=== PATIENT | female | born 1945 | race Caucasian/White ===

== ENCOUNTER 2021-02-20 09:37 | Inpatient (IN) | payer MEDICARE, MEDICAID, SELFPAY ==
[2021-02-20] VITALS (30 sets, daily range): BP systolic 62–216; BP diastolic 18–171; PULSE 45–84; RESP 13–19; TEMP 36–37.4; O2SAT 89–100; BMI 21.5; BMI 20.9
--- NOTE | ~2021-02-20 | XR_ITS ---
EXAMINATION: XR CHEST CLINICAL INFORMATION: Hypoxia COMPARISON: 08/14/2017 TECHNIQUE: Frontal view of the chest was obtained. FINDINGS: Mildly displaced fracture of the left seventh rib posteriorly suspected. This appears likely nonacute. No pneumothorax. Patient's chin obscures the left lung apex. No significant abnormality is otherwise noted involving the heart, lungs, mediastinum, bony thorax or soft tissues. XR/XR chest 1V IMPRESSION: Left-sided rib fracture as above. No infiltrate. No CHF.
--- NOTE | ~2021-02-20 | CT_ITS ---
EXAMINATION: CT ABDOMEN AND PELVIS WITHOUT CONTRAST CLINICAL INFORMATION: Acute and chronic kidney disease. Urosepsis. COMPARISON: Previous CT of the abdomen and pelvis July 2014 TECHNIQUE: Multidetector volumetric imaging was performed from the superior aspect of the liver through the pubic symphysis. Sagittal and coronal reformatted images were obtained on the technologist's workstation. This CT examination was performed using dose optimization techniques as appropriate, variously including the following: *Automated exposure control *Adjustment of mA and/or kV according to patient size (this includes techniques or standardized protocols for targeted exams where dose is matched to indication/reason for exam; i.e. extremities or head) *Use of iterative reconstruction technique DLP: 652 mGy-cm FINDINGS: LUNG BASES: There is minimal pleural thickening at the left lung base. LIVER, GALLBLADDER, AND BILIARY TREE: The liver is normal in size, shape, and attenuation. No focal hepatic lesion or biliary ductal dilatation is present. The gallbladder is unremarkable with no evidence of radiopaque gallstones, gallbladder wall thickening, or obvious pericholecystic inflammatory changes. PANCREAS: Unremarkable. SPLEEN: Unremarkable. ADRENAL GLANDS: Unremarkable. KIDNEYS AND URETERS: The kidneys are normal in size, shape, and attenuation. No hydronephrosis, hydroureter, or calculi seen. No perinephric stranding. There are bilateral renal cysts measuring 2.2 cm in the lower pole of the right kidney and 2.5 cm in the upper pole of the left kidney. These are similar to previous exam. No imaging follow-up needed. There are multiple small cortical millimeter in size calcifications seen in the kidneys, left greater than right. Cyst wall calcification and microcystic kidney disease should be considered. BLADDER: There is a Bedoya catheter in the bladder. The bladder is otherwise unremarkable. GASTROINTESTINAL TRACT: There is stool throughout the colon suggestive of constipation. There is diverticulosis of the colon. Small and large bowel is otherwise unremarkable. The appendix is unremarkable. There is an esophageal hernia. ABDOMINAL WALL: No significant hernia is appreciated. LYMPH NODES: Normal. VASCULAR: There is evidence of atherosclerotic disease. There is a 1.2 cm splenic artery aneurysm. This is similar in size to 2015 exam. PELVIC VISCERA: Unremarkable. OSSEOUS STRUCTURES: There is scoliosis and degenerative changes of the spine. CT/CT abdomen pelvis wo con IMPRESSION: No renal stone or hydronephrosis. Bilateral renal cysts. Numerous punctate cortical calcifications in both kidneys, left greater than right, question related to microcystic kidney disease. Diverticulosis and constipation. Stable small splenic artery aneurysm. Fleischner guidelines were followed.
--- NOTE | 2021-02-20 09:54 | ED_ITS ---
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 She was reportedly getting intermittently straight cathed and had a lot of pain with catheterization yesterday. Labs were done which revealed a WBC 17, sodium of 159, creatinine of 3.07 and BUN of 113. Her baseline BUN and creatinine are reportedly 45/1.93. Her last sodium was 137. Her urinalysis showed signs of infection but is unclear if she was start any antibiotics. She is chronically confused and contracted not a reliable historian. She is more lethargic than her baseline per EMS but unclear when this started. MD complaint: abnormal lab Initial visit (ago): day(s) Returns today for: called because of abnormal lab/test and needs IV antibiotics Description of abnormal result: sodium 159, SCR 3, WBC 17K Associated symptoms: other (lethargy) Related Data Allergies Allergy/AdvReac Type Severity Reaction Status Date / Time pollen extracts [POLLEN] Allergy Unknown SNEEZING Unverified 11/17/19 15:21 quetiapine [From SEROQUEL] Allergy Unknown UKNOWN Unverified 11/17/19 15:21 Review of Systems Review of Systems: Yes Unobtainable due to mental condition and Unobtainable due to mental status [facility] Past Medical History Attestation statement: The following information was validated with the patient. Social History Social History Advance Directives: Yes Advance Directives on File: Yes Advance Directives Date on File: 02/20/21 Physical Exam Vital Signs: Vital Signs: Last Vital Signs Temp 98.1 F 02/20/21 14:29 Pulse 72 02/20/21 14:33 Resp 15 02/20/21 14:29 BP 118/42 L 02/20/21 14:33 Pulse Ox 100 02/20/21 14:29 BMI result Body Mass Index 20.9 Appearance: lethargic, elderly male no distress Eyes: Pupils equal, round and reactive to light. eyes crusted shut. ENT: Pharynx with dry mucus membranes Neck: Normal inspection. Neck supple. CVS: Normal heart rate and rhythm. Pulses normal. Respiratory: No respiratory distress. Breath sounds normal. Abdomen: Soft and nontender. +BS x4 Skin: Skin warm and dry. Normal skin color. Normal skin turgor. No rashes. Extremities: No lower extremity edema. Contracted LE Neuro: arouses to voice and sternal sub but does not verbalize or localize, nonverbal, does not follow commands. Course Course Course Narrative: 75-year-old female presents to the ER with leukocytosis 17K, JAMIN on CKD and hypernatremia in the setting of UTI found yesterday. Spoke with nurse at [facility] who reports the results of her UA were just resulted today and she did not get any antibiotics there. She is hypotensive on arrival, concern for severe sepsis and possible septic shock. Sepsis bolus and IV cefepime ordered for urosepsis based on yeseterday's urinalysis. MOLST was reviewed she is a full code. Baseline BP 125/74 last week per SNF. Reevaluation(s) Reevaluation #1: 11 am - Based on her free water deficit of a sodium 159 yesterday she has a 3.2 L free water deficit and will require 1.6 L of free water today. Will start D5W at 75 cc/ hour. Reevaluation #2: 11:38 - BP improved to 101/40 however due to wide pulse pressure (due to sepsis) MAP 49 after sepsis bolus completed. Will need to place central line and start pressors. Spoke with patient's cousin Tatum Reyes [phone] who is her 90 yo cousin and only living family member. She has kayley bagley decisions for Yue when she is unable to. She provided consent for central line and pressors. She reiterated patient is full code. [facility] reports she is not conserved yet. Reevaluation #3: 12:05 - prior to initiation of pressors BP improved with MAP 66. Repeat sodium here 162 - Free water deficit 3.7L. To continue D5W, will trend sodium again now. 12:40 - BP again dropped to the 80's with MAPs in the 40s. Peripheral low dose Levophed was started. Right IJ was unable to be visualized for a safe window for plament of a TLC. Dr. Vasquez also assessed and agrees. Will continue low dose peripheral pressors. Additional IVF in the form of LR ordered in addition to D5W as well as she appears clinically dry. Spoke with Dr. Weston who will admit. Consultations Consultation #1: Dr. Weston - ICU MDM - Recheck/Abnormal Lab/Rx Lab Data Result diagrams: 02/20/21 11:11 02/20/21 11:11 Labs: Lab Results 02/20/21 02/20/21 02/20/21 Range/Units 11:11 11:11 11:11 WBC 17.2 H (4.8-10.8) X10*3/uL RBC 3.89 L (4.20-5.50) X10*6/uL Hgb 11.6 L (12.0-16.0) g/dl Hct 38.5 (37.0-47.0) % MCV 99.0 H (80.0-98.0) fL MCH 29.8 (27.0-33.0) pg MCHC 30.1 L (31.0-35.0) g/dl RDW 13.2 (11.0-16.0) % Plt Count 332 (160-400) X10*3/uL MPV 11.5 (9.4-12.3) fL Immature Gran % (Auto) 0.6 H (0.0-0.4) % Neut % (Auto) 82.5 H (45-73) % Lymph % (Auto) 10.0 L (20-40) % [place] % (Auto) 6.8 (2-11) % Eos % (Auto) 0.0 (0-4) % Baso % (Auto) 0.1 (0-2) % Lymph # (Auto) 1.7 (1.2-4.9) X10*3/uL [place] # (Auto) 1.2 (0.1-1.2) X10*3/uL Eos # (Auto) 0.0 (0.0-0.4) X10*3/uL Baso # (Auto) 0.0 (0.0-0.2) X10*3/uL Abs Immat Gran (auto) 0.10 H (0.00-0.03) X10*3/uL Absolute Neuts (auto) 14.1 H (2.0-8.3) x10*3/uL Absolute Nucleated RBC 0.000 (0.0-0.012) X10*3/uL Nucleated RBC % (auto) 0.0 (0.0-0.2) /100WBC Sodium 162 H* (135-145) mmol/L Potassium 3.7 (3.3-5.1) mmol/L Chloride 126 H (96-108) mmol/L Carbon Dioxide 22 (22-29) mmol/L Anion Gap 18 (12-20) BUN > 125 H (9-16) mg/dL Creatinine 2.91 H (0.5-1.4) mg/dL Estim Creat Clear Calc 12.8 Estimated GFR 16 Random Glucose 134 H (60-115) mg/dL Lactic Acid 3.5 H* (0.5-2.0) mmol/L Calcium 8.4 (8.4-10.2) mg/dL Magnesium 2.7 H (1.6-2.6) mg/dL Total Bilirubin 0.5 (0.0-1.0) mg/dL Direct Bilirubin 0.3 (0.0-0.5) mg/dL AST 17 (5-31) U/L ALT 24 (0-31) U/L Alkaline Phosphatase 82 (39-117) U/L Total Protein 5.3 L (6.5-8.0) g/dL Albumin 2.9 L (3.5-5.0) g/dL Urine Color Urine Appearance Urine pH (5.0-8.0) Ur Specific [place] (1.005-1.025) Urine Protein (NEG-TRACE) MG/DL Urine Glucose (UA) (NEG) MG/DL Urine Ketones (NEG) MG/DL Urine Blood (NEG) Urine Nitrite (NEG) Ur Leukocyte Esterase (NEG) Urine RBC (0) /HPF Urine WBC (0-4) /HPF Ur Squamous Epith Cells /LPF Urine Bacteria /LPF COVID-19 (JUANPABLO) (Negative) COVID-19 Clin Com 02/20/21 02/20/21 Range/Units 11:13 13:26 WBC (4.8-10.8) X10*3/uL RBC (4.20-5.50) X10*6/uL Hgb (12.0-16.0) g/dl Hct (37.0-47.0) % MCV (80.0-98.0) fL MCH (27.0-33.0) pg MCHC (31.0-35.0) g/dl RDW (11.0-16.0) % Plt Count (160-400) X10*3/uL MPV (9.4-12.3) fL Immature Gran % (Auto) (0.0-0.4) % Neut % (Auto) (45-73) % Lymph % (Auto) (20-40) % [place] % (Auto) (2-11) % Eos % (Auto) (0-4) % Baso % (Auto) (0-2) % Lymph # (Auto) (1.2-4.9) X10*3/uL [place] # (Auto) (0.1-1.2) X10*3/uL Eos # (Auto) (0.0-0.4) X10*3/uL Baso # (Auto) (0.0-0.2) X10*3/uL Abs Immat Gran (auto) (0.00-0.03) X10*3/uL Absolute Neuts (auto) (2.0-8.3) x10*3/uL Absolute Nucleated RBC (0.0-0.012) X10*3/uL Nucleated RBC % (auto) (0.0-0.2) /100WBC Sodium (135-145) mmol/L Potassium (3.3-5.1) mmol/L Chloride (96-108) mmol/L Carbon Dioxide (22-29) mmol/L Anion Gap (12-20) BUN (9-16) mg/dL Creatinine (0.5-1.4) mg/dL Estim Creat Clear Calc Estimated GFR Random Glucose (60-115) mg/dL Lactic Acid (0.5-2.0) mmol/L Calcium (8.4-10.2) mg/dL Magnesium (1.6-2.6) mg/dL Total Bilirubin (0.0-1.0) mg/dL Direct Bilirubin (0.0-0.5) mg/dL AST (5-31) U/L ALT (0-31) U/L Alkaline Phosphatase (39-117) U/L Total Protein (6.5-8.0) g/dL Albumin (3.5-5.0) g/dL Urine Color YELLOW Urine Appearance CLOUDY Urine pH 6.0 (5.0-8.0) Ur Specific [place] 1.015 (1.005-1.025) Urine Protein TRACE (NEG-TRACE) MG/DL Urine Glucose (UA) NEG (NEG) MG/DL Urine Ketones NEG (NEG) MG/DL Urine Blood 2+ H (NEG) Urine Nitrite POS H (NEG) Ur Leukocyte Esterase 3+ H (NEG) Urine RBC 1-4 (0) /HPF Urine WBC 76-150 H (0-4) /HPF Ur Squamous Epith Cells TRACE /LPF Urine Bacteria 1+ /LPF COVID-19 (JUANPABLO) Negative (Negative) COVID-19 Clin Com See Note Critical Care Time Critical Care Time Critical Care Time: Yes Total Critical Care Time: 60 Attestation: I have personally provided critical care time exclusive of time spent on separately billable procedures. Time includes review of lab data, radiology results, discussion with consultants/hospitalists, and monitoring for potential decompensation. Intervention performed as documented. Discharge Plan Discharge Clinical Impression: Acute hypernatremia, Acute UTI, Acute metabolic encephalopathy, Acute kidney injury superimposed on chronic kidney disease, Septic shock Patient Disposition: Admitted As Inpatient
[2021-02-20] MEDS: 0.9 % Sodium Chloride 1,000 ML 999 ML IVCONT (10:14)
--- NOTE | 2021-02-20 11:23 | PC.NURSE ---
This PCT attempted to obtain labs from patient was unable to get labs, another PCT Tonie attempted was also unable, PCT Jose was able to obtain labs and was sent to lab for processing
[2021-02-20 11:25] LABS: MANUAL DIFF FLAG NO
[2021-02-20 11:30] LABS: Basophils Percent Auto 0.1 % (0-2); Hematocrit 38.5 % (37.0-47.0); Hemoglobin 11.6 g/dl (12.0-16.0); Imm Gran Pct Auto 0.6 % (0.0-0.4); Lymphocytes Absolute Auto 1.7 X10*3/uL (1.2-4.9); Mean Corpuscular HGB Conc 30.1 g/dl (31.0-35.0); Mean Corpuscular Hemoglobin 29.8 pg (27.0-33.0); Mean Platelet Volume 11.5 fL (9.4-12.3); Monocytes Absolute Auto 1.2 X10*3/uL (0.1-1.2); Monocytes Percent Auto 6.8 % (2-11); Neutrophils Absolute Auto 14.1 x10*3/uL (2.0-8.3); Neutrophils Percent Auto 82.5 % (45-73); Platelet Count 332 X10*3/uL (160-400); Red Blood Count 3.89 X10*6/uL (4.20-5.50); Red Cell Distribution Width 13.2 % (11.0-16.0); White Blood Count 17.2 X10*3/uL (4.8-10.8)
[2021-02-20] MEDS: cefEPime HCl 2 GM in 0.9 % Sodium Chloride 50 ML IV (11:32)
[2021-02-20 11:38] LABS: Lactic Acid 3.5 mmol/L (0.5-2.0)
[2021-02-20 11:47] LABS: Alanine Aminotransferase 24 U/L (0-31); Albumin Level 2.9 g/dL (3.5-5.0); Alkaline Phosphatase 82 U/L (39-117); Aspartate Amino Transferase 17 U/L (5-31); Bilirubin Direct 0.3 mg/dL (0.0-0.5); Bilirubin Total 0.5 mg/dL (0.0-1.0); Calcium 8.4 mg/dL (8.4-10.2); Glucose Random 134 mg/dL (60-115); Magnesium 2.7 mg/dL (1.6-2.6); Total Protein 5.3 g/dL (6.5-8.0)
[2021-02-20 11:48] LABS: COVID-19 Test Negative (Negative)
[2021-02-20 11:59] LABS: Anion Gap 18 (12-20); Blood Urea Nitrogen > 125 mg/dL (9-16); Carbon Dioxide 22 mmol/L (22-29); Chloride 126 mmol/L (96-108); Creatinine Clr Calc Pharmacy 12.8; Estimated Glomerular Filt Rate 16; Potassium 3.7 mmol/L (3.3-5.1); Sodium 162 mmol/L (135-145)
[2021-02-20] MEDS: Dextrose 5 % 1,000 ML 75 ML IVCONT (12:12)
--- NOTE | 2021-02-20 13:04 | ECG_ITS ---
Test Reason : ABNORMAL LABS Blood Pressure : / mmHG Vent. 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
[2021-02-20 13:18] LABS: Reflex Lactate? Lactic Acid Added
[2021-02-20 13:42] LABS: Appearance Urine CLOUDY; Color Urine YELLOW; Glucose Urine UA NEG (NEG); Leukocyte Esterase Urine 3+ (NEG); Nitrite Urine POS (NEG); Specific Gravity - Urine 1.015 (1.005-1.025); UACC Culture Trigger YES; Urine Blood 2+ (NEG); Urine Ketones NEG (NEG); Urine Protein TRACE MG/DL (NEG-TRACE)
[2021-02-20 13:51] LABS: Bacteria Urine 1+ /LPF; Squamous Epithelial Cell Urine TRACE /LPF
--- NOTE | 2021-02-20 13:59 | PC.NURSE ---
TEMP SENSING CERVANTES PLACED. IMMEDIATE RETURN NOTED. URINE THICK/CLOUDY APPEARING. PT TOLERATED WITHOUT INCIDENT.
--- NOTE | 2021-02-20 14:48 | PHA.MEDREC ---
Pharmacy Consult ? Medication Reconciliation Pharmacy has completed the medication reconciliation. No remarkable issues. Received list from [facility] with dispense dates. Devi Mccann RPh
--- NOTE | 2021-02-20 15:03 | PC.NURSE ---
pt has a stage 3 and blancable area to coccyx new dressing applied and on left l buttock a small dime size stage 2 and a rectanglar shape dark blister filled area. This rn was unable to access the camera from the pyxis.
[2021-02-20 15:26] LABS: Anion Gap 16 (12-20); Blood Urea Nitrogen 119 mg/dL (9-16); Calcium 8.6 mg/dL (8.4-10.2); Carbon Dioxide 19 mmol/L (22-29); Chloride 130 mmol/L (96-108); Creatinine Clr Calc Pharmacy 13.9; Estimated Glomerular Filt Rate 17; Glucose Random 172 mg/dL (60-115); Sodium 161 mmol/L (135-145); ~Lactic Acid-LAB USE ONLY 2.7 mmol/L (0.5-2.0)
--- NOTE | 2021-02-20 16:04 | MHC.CM.PN ---
Pt transferring to ICU from ED with hypotension and electrolyte abnormalies: Per review of EMR and discussion with pt's HCP, cousin Tatum, pt has been a LTC resident of [facility] in [place]. Her exact functional abilities are not quite known but per Tatum, pt has had a long period of bad health IMM reviewed with Tatum: copy to be left at pt bedside Pt re-referred to [facility]: message left with nursing floor at [facility] for any MOLST forms and to inquire on functional abilities as well as dates for COVID vax. Will await callback. BLS transfer back to [facility] when medically stable
--- NOTE | 2021-02-20 16:12 | PC.NURSE ---
Pt resting, responds to name, no verbal communication. NSR on monitor in 70's, 100% 2L NC, Levo running at 0.09mcg/kg/hr with a current MAP of 87. Report to Dione in the ICU, awaiting transport at this time.
[2021-02-20 17:07] LABS: Reflex Lactate? 2 Y
[2021-02-20] MEDS: Phenylephrine HCL 100 MG in 0.9 % Sodium Chloride 250 ML 8.11 MG IVCONT (18:18)
[2021-02-20 19:11] LABS: Cancel Lactic Acid Canceled
[2021-02-20] MEDS: Dextrose 5 % and 0.45 % NaCl 1,000 ML 200 ML IVCONT (20:33)
--- NOTE | 2021-02-20 21:07 | PM.CCHP ---
History of Present Illness Date of Service: 02/20/21 Attending physician on admission: Mike Weston Chief Complaint: Abnormal labs. Mrs. Ballesteros is admitted to the ICU this afternoon with presumed urosepsis, septic shock, hypovolemia, and severe hypernatremia. 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 The patient had COVID-19 infection in June of 2019.? She has had the 2 dose vaccine, plus a booster.? She had her flu shot last month. Current medications include: MiraLax Ativan 1 mg qhs Pepcid Haldol 25 mg IM q2 weeks Remeron 7.5 mg qhs Bowel protocol Tums prn The patient is allergic to Seroquel. The patient lives in [facility]. ?The transfer note from [facility] reports that the patient is nonverbal at baseline, but will make sounds and noises.? At baseline the patient is contractured but will move extremities on her own.? She is bedbound. According to the transfer note from [facility], the patient's healthcare proxy is Siri Reyes ([phone]).? The transfer documents include a MOLST form dated April 02, 2018, and signed by the patient.? That MOLST form indicates to attempt resuscitation, and intubate and ventilate.? Other issues on page 2 of the MOLST form were marked undecided. I spoke with Zahiratiffanie Reyes at some length this evening.? Ms. Reyes is the patient's 1st cousin.? She is the patient's closest living relative.? Ms. Reyes is 89 years old and by her own admission, does not have the best memory.? She lives in her own home with her grandson Johnathon.? She told me that the patient moved to [facility] about 2 years ago.? The last time she visited the patient with Johnathon was maybe 3 months ago.? Ms. Reyes told me that at that time the patient was slurring her speech and not making any sense.? Johnathon told me the same thing. HISTORY OF PRESENT ILLNESS: ?The pt was sent to the ED this morning bec of abnormal labs.? She was reportedly getting intermittently straight cathed and had a lot of pain with catheterization yesterday.? Labs were done which revealed a WBC 17, sodium of 159 (baseline 137), BUN/creatinine of 113/3.07 (baseline 45/1.93).? Her hemoglobin at the snf yesterday was 14; baseline hemoglobin is 10.9. ??Her urinalysis done yesterday showed 646 wbc's, large leukocyte esterase, and heavy bacteria.? Urine culture is pending.? All those labs were done at [facility].? I called over to the [facility] micro lab and was told that her urine culture is growing >100,000 gram-negative rods.? The patient was also reported to be more lethargic than usual.? We were told that the labs just came back today and the patient did not get any antibiotics at home. In the ED, the patient was lethargic, breathing easy, aroused to voice and sternal rub but did not verbalize or localize, did not follow commands.? Initial vital signs were heart rate of 69, various blood pressures were in the 70s-80s systolic,? sat was 89% on room air and 100% on 2 L oxygen by nasal cannula.? Rectal temperature was 99.4 degrees.? General physical exam was otherwise remarkable for contracted lower extremities. Labs in the ED were notable for a white count of 17, hemoglobin of 11.6, sodium of 162, BUN/creatinine of 125/2.9, chloride 126, potassium 3.7, bicarb 22, glucose 134, normal LFTs, albumin 2.9, normal troponin, and lactic acid of 3.5.? COVID negative.? Chest x-ray showed no acute disease.? Abdominal and pelvic CT showed bilateral renal cysts, with numerous punctate cortical calcifications in both kidneys.? There were no renal stones or hydronephrosis.? The rectum is markedly dilated with stool; the rectosigmoid is full of stool, all the way down to the anus. The patient was given a 30 cc/kg sepsis bolus of normal saline.? She was given cefepime.? After labs came back, she was started on D5W.? Blood pressure improved to 101/40, but blood pressure dropped again into the 80s.? Ultrasound examination of the neck was unable to find a jugular vein, and therefore no central line was placed.? The patient was started on peripheral low-dose Levophed. I was called and saw the patient in the ED at about 13 30.? At that time, the patient's eyes were open but she was completely nonverbal and noninteractive.? She grimaced to painful stimulation.? She would not let me open her eyes to look at her pupils.? Heart rate was 70, with a blood pressure 102/41 on Levophed at 0.05 mcg. ?She was breathing easy with a sat of 100% on 2 L nasal cannula. ?With the head of the bed at about 10 degrees, there was no jugular venous distention.? Chest was clear to auscultation.? Regular rate and rhythm, with no murmurs or gallops.? Abdomen is flat and benign.? The patient has contracted lower extremities with maybe trace central and peripheral edema.? Her upper extremities are rigid. My bedside echocardiogram after arrival in the ICU:? Image quality is fair.? Findings: 1.? Probably normal LV wall thickness. 2. LV cavity size is normal sized.? Overall wall motion looks slightly hypokinetic.? Estimated EF about 50%.? I saw no gross RWMA. 3. RV size is probably normal.? Unable ?to assess function. 4. Unable to evaluate atria. 5. Unable to adequately visualize aortic valve, but it looks calcified. 6. Mitral valve normal morphology, with no MR by color flow. 7. Unable to visualize tricuspid valve.? Continuous-wave Doppler measured 1.8 m/sec. 8. Unable to visualize IVC. LABORATORY DATA:? Initial labs as above.? Follow-up labs at 3pm were notable for sodium of 161, BUN/creatinine down to 119/2.6, bicarb down to 19, potassium 4.0, lactate down to 2.7. IMPRESSION: 1. Baseline schizoaffective disorder, dementia, parkinsonism.? At baseline she is minimally communicative. 2. Urosepsis with GNR UTI.? I will continue the cefepime pending ID and sensitivity. 3. ?Septic shock.? Continuing volume resuscitation.? A central line would be inappropriately invasive, I?m not going to put one in.? We can give her phenylephrine peripherally until she?s volume expanded. 4. Marked hypovolemia and hemoconcentration.? Continue vol resusc with D5 1/2NS. 5. Acute on chronic kidney injury.? Secondary to above. 6. Severe hypernatremia.? Secondary to above.? Do not want to correct her too fast. ?Next F/U labs at 9pm. 7. Severe obstipation.? Needs disimpaction and an enema.? Then needs daily laxative. 8. Moderate protein calorie malnutrition. ?probably at least mild.? Not sure how she well she eats at baseline.? (A feeding tube is not appropriate in patients with end stage [employer] disease like this.) I spoke with Zahira Reyes and the grandson Johnathon about life support issues.? They both agreed that it made no sense to put her on a ventilator or do CPR.? I told them we would not put her on a respirator or do chest compressions if something happened, and they both readily agreed.? Nurse Braxton Kelly listened in on the conversation and was witness to their statements. Critical Care Time (including multiple visits to the bedside, extended review of medical records, an extended conversation with the healthcare proxy):? 2.5 hrs. PMFSH Social History Social History Household Members: Unknown / Unable to assess Housing: [facility] Housing Other:: [facility] Unable to assess alcohol history related to: Unable to respond and Unknown Patient Tobacco Use Status: Tobacco use Unknown Use of substances other than those prescribed or required for medical reasons: Unable to respond Spiritual Healthcare Practices: Unable to assess Sikh Healthcare Practices: Unable to assess Cultural Healthcare Practices: Unable to assess Advance Directives: Yes Advance Directives on File: Yes Advance Directives Date on File: 02/20/21 Recently lost weight without trying: Unsure How much weight loss: Unsure Poor oral hygiene: Yes service: No Current occupational status: disabled Meds Allergies Allergy/AdvReac Type Severity Reaction Status Date / Time pollen extracts [POLLEN] Allergy Unknown SNEEZING Unverified 11/17/19 15:21 quetiapine [From SEROQUEL] Allergy Unknown UKNOWN Unverified 11/17/19 15:21 Active Medications: Current Medications Dextrose (D5w) 1,000 mls @ 75 mls/hr IVCONT .[id number] CONNIE Last Admin: 02/20/21 12:12 Dose: 75 mls/hr Documented by: Phenylephrine HCl 100 mg/ (Sodium Chloride) 260 mls @ 0 mls/hr IVCONT .Q0M [facility]; Protocol Last Admin: 02/20/21 18:18 Dose: 1 mcg/kg/min, 8.11 mls/hr Documented by: Cefepime HCl 1 gm/ Sodium (Chloride) 50 mls @ 100 mls/hr IV Q24H [facility] Stop: 02/25/21 11:01 Dextrose/Sodium Chloride (D51/2ns) 1,000 mls @ 200 mls/hr IVCONT .Q5H [facility] Last Admin: 02/20/21 20:33 Dose: 200 mls/hr Documented by: Pharmacy Consult (Consult Rx Perform Med Rec) 1 each MISCELLANE ONCE PRN PRN Reason: Consult order Home Medications Medication Instructions Recorded Confirmed Last Taken Type famotidine 20 mg tablet 1 tab PO DAILY 02/20/21 02/20/21 02/20/21 History haloperidol decanoate 100 mg/mL 25 mg IM Q14D 02/20/21 02/20/21 02/06/21 History intramuscular solution lorazepam 0.5 mg tablet 1 tab PO DAILY@0600 02/20/21 02/20/21 02/20/21 History lorazepam 1 mg tablet 1 mg PO DAILY@1800 02/20/21 02/20/21 02/19/21 History mirtazapine 7.5 mg tablet 1 tab PO DAILY@1800 02/20/21 02/20/21 02/19/21 History polyethylene glycol 3350 17 gram 17 g PO DAILY PRN 02/20/21 02/20/21 02/19/21 History oral powder packet Physical Exam Vital Signs: Vital Signs: Last Vital Signs Temp 98.2 F 02/20/21 19:00 Pulse 52 02/20/21 20:00 Resp 14 02/20/21 20:00 BP 114/47 L 02/20/21 20:00 Pulse Ox 98 02/20/21 20:00 BMI result Body Mass Index 20.9 Results Labs CBC and Chem 7: 02/20/21 11:11 02/20/21 15:04 Labs: Laboratory Results - last 24 hr 02/20/21 02/20/21 02/20/21 11:11 11:11 11:11 MCV 99.0 H MCH 29.8 MCHC 30.1 L RDW 13.2 Plt Count 332 MPV 11.5 Immature Gran % (Auto) 0.6 H Neut % (Auto) 82.5 H Lymph % (Auto) 10.0 L Faulkner % (Auto) 6.8 Eos % (Auto) 0.0 Baso % (Auto) 0.1 Lymph # (Auto) 1.7 Faulkner # (Auto) 1.2 Eos # (Auto) 0.0 Baso # (Auto) 0.0 Abs Immat Gran (auto) 0.10 H Absolute Neuts (auto) 14.1 H Absolute Nucleated RBC 0.000 Nucleated RBC % (auto) 0.0 Anion Gap 18 Estim Creat Clear Calc 12.8 Estimated GFR 16 Random Glucose 134 H Lactic Acid 3.5 H* Lactic Acid F/U @ 2Hr Calcium 8.4 Magnesium 2.7 H Total Bilirubin 0.5 Direct Bilirubin 0.3 AST 17 ALT 24 Alkaline Phosphatase 82 Troponin I High Sens Total Protein 5.3 L Albumin 2.9 L Urine Color Urine Appearance Urine pH Ur Specific Center Urine Protein Urine Glucose (UA) Urine Ketones Urine Blood Urine Nitrite Ur Leukocyte Esterase Urine RBC Urine WBC Ur Squamous Epith Cells Urine Bacteria COVID-19 (JUANPABLO) COVID-19 weave energy Com 02/20/21 02/20/21 02/20/21 11:13 11:17 13:26 MCV MCH MCHC RDW Plt Count MPV Immature Gran % (Auto) Neut % (Auto) Lymph % (Auto) Faulkner % (Auto) Eos % (Auto) Baso % (Auto) Lymph # (Auto) Faulkner # (Auto) Eos # (Auto) Baso # (Auto) Abs Immat Gran (auto) Absolute Neuts (auto) Absolute Nucleated RBC Nucleated RBC % (auto) Anion Gap Estim Creat Clear Calc Estimated GFR Random Glucose Lactic Acid Lactic Acid F/U @ 2Hr Calcium Magnesium Total Bilirubin Direct Bilirubin AST ALT Alkaline Phosphatase Troponin I High Sens 23.0 H Total Protein Albumin Urine Color YELLOW Urine Appearance CLOUDY Urine pH 6.0 Ur Specific Center 1.015 Urine Protein TRACE Urine Glucose (UA) NEG Urine Ketones NEG Urine Blood 2+ H Urine Nitrite POS H Ur Leukocyte Esterase 3+ H Urine RBC 1-4 Urine WBC 76-150 H Ur Squamous Epith Cells TRACE Urine Bacteria 1+ COVID-19 (JUANPABLO) Negative COVID-19 Clin Com See Note 02/20/21 02/20/21 15:04 15:04 MCV MCH MCHC RDW Plt Count MPV Immature Gran % (Auto) Neut % (Auto) Lymph % (Auto) Faulkner % (Auto) Eos % (Auto) Baso % (Auto) Lymph # (Auto) Faulkner # (Auto) Eos # (Auto) Baso # (Auto) Abs Immat Gran (auto) Absolute Neuts (auto) Absolute Nucleated RBC Nucleated RBC % (auto) Anion Gap 16 Estim Creat Clear Calc 13.9 Estimated GFR 17 Random Glucose 172 H Lactic Acid Lactic Acid F/U @ 2Hr 2.7 H* Calcium 8.6 Magnesium Total Bilirubin Direct Bilirubin AST ALT Alkaline Phosphatase Troponin I High Sens Total Protein Albumin Urine Color Urine Appearance Urine pH Ur Specific Center Urine Protein Urine Glucose (UA) Urine Ketones Urine Blood Urine Nitrite Ur Leukocyte Esterase Urine RBC Urine WBC Ur Squamous Epith Cells Urine Bacteria COVID-19 (JUANPABLO) COVID-19 Clin Com Imaging Radiologist's Impressions: Impressions Chest X-Ray 02/20/21 10:07 IMPRESSION: Left-sided rib fracture as above. No infiltrate. No CHF. Abdomen/Pelvis CT 02/20/21 14:00 IMPRESSION: No renal stone or hydronephrosis. Bilateral renal cysts. Numerous punctate cortical calcifications in both kidneys, left greater than right, question related to microcystic kidney disease. Diverticulosis and constipation. Stable small splenic artery aneurysm. Fleischner guidelines were followed. Critical Care Time Critical Care Time (minutes): 150
[2021-02-20 21:13] LABS: Hematocrit 37.8 % (37.0-47.0); Hemoglobin 11.4 g/dl (12.0-16.0); Mean Corpuscular HGB Conc 30.2 g/dl (31.0-35.0); Mean Corpuscular Hemoglobin 29.8 pg (27.0-33.0); Mean Corpuscular Volume 98.7 fL (80.0-98.0); Mean Platelet Volume 11.6 fL (9.4-12.3); Platelet Count 385 X10*3/uL (160-400); Red Blood Count 3.83 X10*6/uL (4.20-5.50); Red Cell Distribution Width 13.3 % (11.0-16.0); White Blood Count 24.7 X10*3/uL (4.8-10.8)
[2021-02-20 21:28] LABS: Anion Gap 12 (12-20); Blood Urea Nitrogen 101 mg/dL (9-16); Calcium 8.6 mg/dL (8.4-10.2); Carbon Dioxide 23 mmol/L (22-29); Chloride 129 mmol/L (96-108); Creatinine Clr Calc Pharmacy 16.1; Estimated Glomerular Filt Rate 20; Glucose Random 246 mg/dL (60-115); Magnesium 2.5 mg/dL (1.6-2.6); Phosphorus 2.1 mg/dL (2.7-4.5); Potassium 3.2 mmol/L (3.3-5.1); Sodium 161 mmol/L (135-145)
[2021-02-20] MEDS: Dextrose 5 % 1,000 ML 150 ML IVCONT (22:00)
[2021-02-20] MEDS: Atropine Sulfate 1 MG/10 ML SYRINGE 0.5 MG IVPUSH (22:52)
[2021-02-20] MEDS: Potassium Chloride/H20 10 MEQ/100 ML PIGGYBACK 100 MEQ IV (22:57)
--- NOTE | 2021-02-20 23:01 | PM.EVENT ---
Documented by User: Judie Rodriguez PA-C 02/21/21 03:23 Event Note Date of Service: 02/21/21 Event Note: Pt severely constipated with large amount of stool burden in rectum. Therefore, with 2 RN's at the bedside to assist, I disimpacted the pt manually removing a large amount of brown, soft stool with trace of blood. Pt's HR dropped from 70's and 80's to the 30's and 40's around 8pm, bedside echo by Dr Weston showed no abnormalities, pt is normothermic, BP is WNL on phenylephrine. Dr Weston advised 0.5mg atropine, repeat if necessary. We gave one dose and pt's HR went from 55BPM NSR to 80BPM NSR. Will continue to monitor Update 02/21/21 12:22AM Patient's HR down to 48 NSR again, will give another dose of atropine 0.5mg IVP and continue to monitor. Blood pressures are labile, ranging from 150 systolic to 82 systolic, adjusting pressor as necessary. Documented by User: Mike Weston MD 02/21/21 17:06 Event Note Date of Service: 02/21/21 Event Note: Pt severely constipated with large amount of stool burden in rectum. Therefore, with 2 RN's at the bedside to assist, I disimpacted the pt manually removing a large amount of brown, soft stool with trace of blood. Pt's HR dropped from 70's and 80's to the 30's and 40's around 8pm, bedside echo by Dr Weston showed no abnormalities, pt is normothermic, BP is WNL on phenylephrine. Dr Weston advised 0.5mg atropine, repeat if necessary. We gave one dose and pt's HR went from 55BPM NSR to 80BPM NSR. Will continue to monitor Update 02/21/21 12:22AM Patient's HR down to 48 NSR again, will give another dose of atropine 0.5mg IVP and continue to monitor. Blood pressures are labile, ranging from 150 systolic to 82 systolic, adjusting pressor as necessary. Critical care time: + 30 min.
[2021-02-20] MEDS: Potassium Phosphate/NS 15 MMOL/250 ML PLAST..BAG 62.5 MMOL IV (23:03)
[2021-02-21] VITALS (47 sets, daily range): BP systolic 78–171; BP diastolic 33–80; PULSE 33–114; RESP 12–18; TEMP 36–36.7; O2SAT 97–100; BMI 26.6
--- NOTE | 2021-02-21 | ECG_ITS ---
Test Reason : meet Blood Pressure : / mmHG Vent. Rate : 082 BPM Atrial Rate : 082 BPM P-R Int : 154 ms QRS Dur : 086 ms QT Int : 396 ms P-R-T Axes : 048 -71 030 degrees QTc Int : 462 ms Normal sinus rhythm Left axis deviation Low voltage QRS Inferior infarct (cited on or before 29-MAY-2003) Possible Anterolateral infarct (cited on or before 11-APR-2016) Abnormal ECG When compared with ECG of 20-FEB-2021 15:48, Nonspecific T wave abnormality now evident in Anterior leads Nonspecific T wave abnormality no longer evident in Lateral leads QT has lengthened Referred By: Mike Weston Electronically Signed By:Valeriy Nelson
[2021-02-21] MEDS: Atropine Sulfate 1 MG/10 ML SYRINGE 0.5 MG IVPUSH (00:21)
[2021-02-21] MEDS: Dextrose 5 % 1,000 ML 100 ML IVCONT ×2 (00:24)
[2021-02-21] MEDS: Potassium Chloride/H20 10 MEQ/100 ML PIGGYBACK 100 MEQ IV ×3 (00:39→16:26)
[2021-02-21] MEDS: DOPamine HCL/D5W 400 MG/250 ML PLAST..BAG 9.75 MG IVCONT (00:45)
[2021-02-21 04:16] LABS: Hematocrit 41.9 % (37.0-47.0); Hemoglobin 12.9 g/dl (12.0-16.0); Mean Corpuscular HGB Conc 30.8 g/dl (31.0-35.0); Mean Corpuscular Hemoglobin 29.8 pg (27.0-33.0); Mean Corpuscular Volume 96.8 fL (80.0-98.0); Mean Platelet Volume 11.5 fL (9.4-12.3); Platelet Count 394 X10*3/uL (160-400); Red Blood Count 4.33 X10*6/uL (4.20-5.50); Red Cell Distribution Width 13.2 % (11.0-16.0); White Blood Count 23.7 X10*3/uL (4.8-10.8)
[2021-02-21 04:25] LABS: Albumin Level 3.3 g/dL (3.5-5.0); Anion Gap 16 (12-20); Blood Urea Nitrogen 82 mg/dL (9-16); Calcium 8.7 mg/dL (8.4-10.2); Carbon Dioxide 20 mmol/L (22-29); Chloride 122 mmol/L (96-108); Creatinine Clr Calc Pharmacy 18.3; Estimated Glomerular Filt Rate 24; Glucose Random 317 mg/dL (60-115); Phosphorus 4.1 mg/dL (2.7-4.5); Sodium 154 mmol/L (135-145)
[2021-02-21] MEDS: Dextrose 5 % 1,000 ML 50 ML IVCONT (05:48)
[2021-02-21 06:21] LABS: Cancel Lactic Acid Canceled
[2021-02-21] MEDS: Phenylephrine HCL 20 MG in 0.9 % Sodium Chloride 250 ML 19.66 MG IVCONT (08:56)
[2021-02-21] MEDS: Piperacillin Sodium/Tazobactam 3.375 GM in 0.9 % Sodium Chloride 50 ML IV (09:20)
[2021-02-21] MEDS: Dextrose 5 % and 0.45 % NaCl 1,000 ML 150 ML IVCONT (09:37)
--- NOTE | 2021-02-21 09:55 | PM.CCPN ---
Subjective Subjective Date of Service: 02/21/21 Interval History: Mrs. Ballesteros was admitted to the ICU yesterday afternoon (Feb 20) with presumed urosepsis, septic shock, hypovolemia, and severe hypernatremia. 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 The patient had COVID-19 infection in June of 2019.? She has had the 2 dose vaccine, plus a booster.? She had her flu shot last month. Current medications include: MiraLax Ativan 1 mg qhs Pepcid Haldol 25 mg IM q2 weeks Remeron 7.5 mg qhs Bowel protocol Tums prn The patient is allergic to Seroquel. The patient lives in [facility].? The transfer note from [facility] reports that the patient is nonverbal at baseline, but will make sounds and noises.? At baseline the patient is contractured but will move extremities on her own.? She is bedbound. According to the transfer note from [facility], the patient's healthcare proxy is Siir Reyes ([phone]).? The transfer documents include a MOLST form dated April 02, 2018, and signed by the patient.? That MOLST form indicates to attempt resuscitation, and intubate and ventilate.? Other issues on page 2 of the MOLST form were marked undecided. I spoke with Zahira Reyes at some length.? Ms. Reyes is the patient's 1st cousin.? She is the patient's closest living relative.? Ms. Reyes is 89 years old and by her own admission, does not have the best memory.? She lives in her own home with her grandson Johnathon.? She told me that the patient moved to [facility] about 2 years ago.? The last time she visited the patient with Johnathon was maybe 3 months ago.? Ms. Reyes told me that at that time, the patient was slurring her speech and not making any sense.? Johnathon told me the same thing. HISTORY OF PRESENT ILLNESS:? The pt was sent to the ED yesterday bec of abnormal labs.? She was reportedly getting intermittently straight cathed and had a lot of pain with catheterization.? Labs were done which revealed a WBC 17, sodium of 159 (baseline 137), BUN/creatinine of 113/3.07 (baseline 45/1.93).? Her hemoglobin at the [facility] yesterday was 14; baseline hemoglobin is 10.9.? ?Her urinalysis done yesterday showed 646 wbc's, large leukocyte esterase, and heavy bacteria.? Urine culture is pending.? All those labs were done at [facility].? I called over to the [facility] micro lab and was told that her urine culture was growing >100,000 gram-negative rods.? The patient was also reported to be more lethargic than usual.? We were told that the labs just came back and the patient did not get any antibiotics at the home. In the ED, the patient was lethargic, breathing easy, aroused to voice and sternal rub but did not verbalize or localize, did not follow commands.? Initial vital signs were heart rate of 69, various blood pressures were in the 70s-80s systolic,? sat was 89% on room air and 100% on 2 L oxygen by nasal cannula.? Rectal temperature was 99.4 degrees.? General physical exam was otherwise remarkable for contracted lower extremities. Labs in the ED were notable for a white count of 17, hemoglobin of 11.6, sodium of 162, BUN/creatinine of 125/2.9, chloride 126, potassium 3.7, bicarb 22, glucose 134, normal LFTs, albumin 2.9, normal troponin, and lactic acid of 3.5.? COVID negative.? Chest x-ray showed no acute disease.? Abdominal and pelvic CT showed bilateral renal cysts, with numerous punctate cortical calcifications in both kidneys.? There were no renal stones or hydronephrosis.? The rectum is markedly dilated with stool; the rectosigmoid is full of stool, all the way down to the anus. The patient was given a 30 cc/kg sepsis bolus of normal saline.? She was given cefepime.? After labs came back, she was started on D5W.? Blood pressure improved to 101/40, but then dropped again into the 80s.? Ultrasound examination of the neck was unable to find a jugular vein, and therefore no central line was placed.? The patient was started on peripheral low-dose Levophed. I was called and saw the patient in the ED at about 13 30.? At that time, the patient's eyes were open but she was completely nonverbal and noninteractive.? She grimaced to painful stimulation.? She would not let me open her eyes to look at her pupils.? Heart rate was 70, with a blood pressure 102/41 on Levophed at 0.05 mcg.? She was breathing easy with a sat of 100% on 2 L nasal cannula.? There was no jugular venous distention.? Chest was clear.? Abdomen benign.? Lower extremities were contracted.? No significant edema. My bedside echocardiogram after arrival in the ICU: 1.? Probably normal LV wall thickness. 2. LV cavity size is normal sized.? Overall wall motion looks slightly hypokinetic.? Estimated EF about 50%.? I saw no gross RWMA. 3. RV size is probably normal.? Unable? to assess function. 4. Unable to evaluate atria. 5. Unable to adequately visualize aortic valve, but it looks calcified. 6. Mitral valve normal morphology, with no MR by color flow. 7. Unable to visualize tricuspid valve.? Continuous-wave Doppler measured 1.8 m/sec. 8. Unable to visualize IVC. The patient was continued overnight last night on D5W at 150 cc/hr.? She was manually disimpacted for a large amount of soft brown stool, and then given an enema.? Overnight last night, her HR dropped into the 30s.? She did not respond to atropine.? She was started on dopamine.? The dose of dopamine was escalated to a high of 20 ug this morning. By this morning, she?s making copious water-looking urine.? She made 2 L of urine overnight.? She appears more ?awake? today, altho she?s still noncommunicative and just moans to stimulation.? Looks much less dry.? On Dopamine 15ug, HR is 47, BP 139/55.? RR is 16 on room air, Sat is 100%.? Temp is 96.8?.? No JVD at 20-30?. ?Chest is CTA.? Abdomen benign.? Maybe trace edema.? The patient has a stage II decubitus on her coccyx, stage I decubiti on both buttocks, and a purple DTI on her left butt. I had the pharmacist technician echo her IVC this morning.? The IVC measured about 0.95 cm, and had at least 50% insp collapse. LABORATORY DATA:? Below.? Notably, WBC is steady at 23.? Hb is up(!) to 12.9.? At 4am this morning, sodium was finally down to 154.? BUN/creatinine were down to 82/2.0.? Lactic acid was down to 3.0.? Albumin was up(!) to 3.3.? We changed her fluid to D5 half-normal saline.? By noon time today, sodium was down to 147, BUN/creatinine down to 63/1.8.? Glucose was 584.? Therefore her fluid was changed to half-normal saline and she was given 15 units of insulin IV push.? POC one hour later was 173. MICROBIOLOGY:? Urine culture came back from [facility] showing >100,000 Klebsiella that was mostly sensitive.? Results are in the patient's chart.? I will change her antibiotics to ceftriaxone. IMPRESSION: 1. Baseline schizoaffective disorder, dementia, parkinsonism.? At baseline she is minimally communicative.? It?s not clear how she is this morning relative to her baseline.? But I would think that her baseline has to be better than this, bec the patient obviously eats to maintain her weight.? And this morning, her mental status doesn?t appear compatible with eating. 2. Urosepsis with GNR UTI.? Blood cultures are negative so far. 3.? Septic shock.? Continuing volume resuscitation.? A central line would be inappropriately invasive, I?m not going to put one in.? She is doing OK with peripheral pressors. 4. Bradycardia.? Unclear why.? Continue with dopamine for now.? I will check her troponins, TSH, and free T4. 5. Still hypovolemic and hemoconcentrated.? Continue vol resusc with 1/2NS. 6. Acute on chronic kidney injury.? Secondary to sepsis and hypovolemia 7. Severe hypernatremia.? Secondary to above.? Don?t want to correct her too fast.? Next F/U labs at 8pm tonite. 8. Severe obstipation.? Dehydration doesn?t help.? Needs daily laxative. 9. Moderate protein calorie malnutrition.? Not sure how she well she eats at baseline.? The fact that she became so dehydrated and hypernatremic may be a sign that her brain function is reaching end-stage. ?(A feeding tube is not appropriate in patients with end stage EDUCATIONAL AIDE disease like this.) Last night, I spoke with Zahira Reyes and the grandson Johnathon about life support issues.? They both agreed that it made no sense to put her on a ventilator or do CPR.? I told them we would not put her on a respirator or do chest compressions if something happened, and they both readily agreed.? Nurse Braxton Kelly listened in on the conversation and was witness to their statements. I have written DNR/DNI orders, and discussed the situation with case management this morning.? At some point before she leaves the hospital, the patient should have her MOLST form revised. Critical Care Time (minutes): 70 Physical Exam Vital Signs: Vital Signs: Last Vital Signs Temp 96.8 F 02/21/21 08:00 Pulse 51 02/21/21 09:00 Resp 16 02/21/21 09:00 BP 151/61 H 02/21/21 09:00 Pulse Ox 100 02/21/21 09:00 BMI result Body Mass Index 26.6 Objective Data Labs CBC & Chem 7: 02/21/21 04:00 02/21/21 12:22 Labs: Laboratory Results - last 24 hr 02/20/21 02/20/21 02/20/21 11:11 11:11 11:11 WBC 17.2 H RBC 3.89 L Hgb 11.6 L Hct 38.5 MCV 99.0 H MCH 29.8 MCHC 30.1 L RDW 13.2 Plt Count 332 MPV 11.5 Immature Gran % (Auto) 0.6 H Neut % (Auto) 82.5 H Lymph % (Auto) 10.0 L [place] % (Auto) 6.8 Eos % (Auto) 0.0 Baso % (Auto) 0.1 Lymph # (Auto) 1.7 [place] # (Auto) 1.2 Eos # (Auto) 0.0 Baso # (Auto) 0.0 Abs Immat Gran (auto) 0.10 H Absolute Neuts (auto) 14.1 H Absolute Nucleated RBC 0.000 Nucleated RBC % (auto) 0.0 Sodium 162 H* Potassium 3.7 Chloride 126 H Carbon Dioxide 22 Anion Gap 18 BUN > 125 H Creatinine 2.91 H Estim Creat Clear Calc 12.8 Estimated GFR 16 Random Glucose 134 H Lactic Acid 3.5 H* Lactic Acid F/U @ 2Hr Calcium 8.4 Phosphorus Magnesium 2.7 H Total Bilirubin 0.5 Direct Bilirubin 0.3 AST 17 ALT 24 Alkaline Phosphatase 82 Troponin I High Sens Total Protein 5.3 L Albumin 2.9 L Urine Color Urine Appearance Urine pH Ur Specific [place] Urine Protein Urine Glucose (UA) Urine Ketones Urine Blood Urine Nitrite Ur Leukocyte Esterase Urine RBC Urine WBC Ur Squamous Epith Cells Urine Bacteria COVID-19 (JUANPABLO) COVID-19 Clin Com 02/20/21 02/20/21 02/20/21 11:13 11:17 13:26 WBC RBC Hgb Hct MCV MCH MCHC RDW Plt Count MPV Immature Gran % (Auto) Neut % (Auto) Lymph % (Auto) [place] % (Auto) Eos % (Auto) Baso % (Auto) Lymph # (Auto) [place] # (Auto) Eos # (Auto) Baso # (Auto) Abs Immat Gran (auto) Absolute Neuts (auto) Absolute Nucleated RBC Nucleated RBC % (auto) Sodium Potassium Chloride Carbon Dioxide Anion Gap BUN Creatinine Estim Creat Clear Calc Estimated GFR Random Glucose Lactic Acid Lactic Acid F/U @ 2Hr Calcium Phosphorus Magnesium Total Bilirubin Direct Bilirubin AST ALT Alkaline Phosphatase Troponin I High Sens 23.0 H Total Protein Albumin Urine Color YELLOW Urine Appearance CLOUDY Urine pH 6.0 Ur Specific [place] 1.015 Urine Protein TRACE Urine Glucose (UA) NEG Urine Ketones NEG Urine Blood 2+ H Urine Nitrite POS H Ur Leukocyte Esterase 3+ H Urine RBC 1-4 Urine WBC 76-150 H Ur Squamous Epith Cells TRACE Urine Bacteria 1+ COVID-19 (JUANPABLO) Negative COVID-19 Clin Com See Note 02/20/21 02/20/21 02/20/21 15:04 15:04 21:07 WBC 24.7 H RBC 3.83 L Hgb 11.4 L Hct 37.8 MCV 98.7 H MCH 29.8 MCHC 30.2 L RDW 13.3 Plt Count 385 MPV 11.6 Immature Gran % (Auto) Neut % (Auto) Lymph % (Auto) [place] % (Auto) Eos % (Auto) Baso % (Auto) Lymph # (Auto) [place] # (Auto) Eos # (Auto) Baso # (Auto) Abs Immat Gran (auto) Absolute Neuts (auto) Absolute Nucleated RBC 0.000 Nucleated RBC % (auto) 0.0 Sodium 161 H* Potassium 4.0 Chloride 130 H Carbon Dioxide 19 L Anion Gap 16 BUN 119 H Creatinine 2.66 H Estim Creat Clear Calc 13.9 Estimated GFR 17 Random Glucose 172 H Lactic Acid Lactic Acid F/U @ 2Hr 2.7 H* Calcium 8.6 Phosphorus Magnesium Total Bilirubin Direct Bilirubin AST ALT Alkaline Phosphatase Troponin I High Sens Total Protein Albumin Urine Color Urine Appearance Urine pH Ur Specific [place] Urine Protein Urine Glucose (UA) Urine Ketones Urine Blood Urine Nitrite Ur Leukocyte Esterase Urine RBC Urine WBC Ur Squamous Epith Cells Urine Bacteria COVID-19 (JUANPABLO) COVID-Beaming Com 02/20/21 02/21/21 02/21/21 21:07 04:00 04:02 WBC 23.7 H RBC 4.33 Hgb 12.9 Hct 41.9 MCV 96.8 MCH 29.8 MCHC 30.8 L RDW 13.2 Plt Count 394 MPV 11.5 Immature Gran % (Auto) Neut % (Auto) Lymph % (Auto) [place] % (Auto) Eos % (Auto) Baso % (Auto) Lymph # (Auto) [place] # (Auto) Eos # (Auto) Baso # (Auto) Abs Immat Gran (auto) Absolute Neuts (auto) Absolute Nucleated RBC 0.000 Nucleated RBC % (auto) 0.0 Sodium 161 H* Potassium 3.2 L Chloride 129 H Carbon Dioxide 23 Anion Gap 12 BUN 101 H Creatinine 2.31 H Estim Creat Clear Calc 16.1 Estimated GFR 20 Random Glucose 246 H Lactic Acid 3.0 H* Lactic Acid F/U @ 2Hr Calcium 8.6 Phosphorus 2.1 L Magnesium 2.5 Total Bilirubin Direct Bilirubin AST ALT Alkaline Phosphatase Troponin I High Sens Total Protein Albumin Urine Color Urine Appearance Urine pH Ur Specific [place] Urine Protein Urine Glucose (UA) Urine Ketones Urine Blood Urine Nitrite Ur Leukocyte Esterase Urine RBC Urine WBC Ur Squamous Epith Cells Urine Bacteria COVID-19 (JUANPABLO) COVID-CustomInk Clin Com 02/21/21 04:02 WBC RBC Hgb Hct MCV MCH MCHC RDW Plt Count MPV Immature Gran % (Auto) Neut % (Auto) Lymph % (Auto) [place] % (Auto) Eos % (Auto) Baso % (Auto) Lymph # (Auto) [place] # (Auto) Eos # (Auto) Baso # (Auto) Abs Immat Gran (auto) Absolute Neuts (auto) Absolute Nucleated RBC Nucleated RBC % (auto) Sodium 154 H Potassium 4.0 D Chloride 122 H Carbon Dioxide 20 L Anion Gap 16 BUN 82 H Creatinine 2.03 H Estim Creat Clear Calc 18.3 Estimated GFR 24 Random Glucose 317 H Lactic Acid Lactic Acid F/U @ 2Hr Calcium 8.7 Phosphorus 4.1 Magnesium Total Bilirubin Direct Bilirubin AST ALT Alkaline Phosphatase Troponin I High Sens Total Protein Albumin 3.3 L Urine Color Urine Appearance Urine pH Ur Specific [place] Urine Protein Urine Glucose (UA) Urine Ketones Urine Blood Urine Nitrite Ur Leukocyte Esterase Urine RBC Urine WBC Ur Squamous Epith Cells Urine Bacteria COVID-19 (JUANPABLO) COVID-19 Clin Com Microbiology Microbiology Results: Microbiology 02/20/21 Unknown Urine Catheterized - Bedoya Catheter Urine Culture - Final Quality Stroke Does the patient have a stroke diagnosis?: No VTE Prior VTE?: No VTE Risk Level:: Medical - moderate - high VTE Device Contraindication: N/A - Device Ordered VTE Drug Contraindication: N/A - Med Ordered Critical Care Time Critical Care Time (minutes): 60
[2021-02-21] MEDS: DOPamine HCL/D5W 400 MG/250 ML PLAST..BAG 29.25 MG IVCONT (10:01)
[2021-02-21] MEDS: cefEPime HCl 1 GM in 0.9 % Sodium Chloride 50 ML IV (10:01)
--- NOTE | 2021-02-21 10:33 | P.CDIC_ITS ---
CDI Concurrent Query Documentation Clarification: PHYSICIAN'S DOCUMENTATION REQUEST Date of Query: 02/21/21 1033 Patient Name: Yue Ballesteros Admit Date: 02/20/21 Dear Doctor, A review of the medical record indicates additional documentation may be needed. Please review below and update the documentation accordingly. Clinical Indicators: The following clinical information was noted in the record: Risk Factors/Clinical Indicators/Treatments CKD, (baseline SCr 1.92) BUN > 125 Creatinine 2.91 Est GFR 16 Please clarify which of the following accurately represents the patient's renal status: * Acute renal failure with suspected ATN * Acute renal failure with other pathology (medullary, papillary, or cortical necrosis) * Acute renal failure (with type, appropriate) on Chronic Kidney Disease (CKD) - see criteria * CKD, please provide stage - see criteria * Other (please specify) * Unable to determine Criteria for JAMIN* Stages of Chronic Kidney Disease* 1. Increase in serum creatinine by ? 0.3 mg/dL Level Description GFR (?26.5 micromol/L) within 48 hours, or G1 Normal or High > 90 2. Increase in serum creatinine to ?1.5 times baseline, G2 Mildly decreased 60 ? 89 which is known or presumed to have occurred within 7 days, or G3a Mildly to moderately decreased 45 ? 59 3. Urine volume <0.5 mL/kg/hour for six hours G3b Moderately to severely decreased 30 - 44 G4 Severely decreased 15 ? 29 G5 Kidney failure < 15 *Source: Kidney Disease: Improving Global Outcomes (KDIGO) 2012 Use of terms such as suspected, likely, concern for, or probable (associated with a specific diagnosis that is being evaluated, monitored, or treated as if it exists) are acceptable and can be coded in the inpatient setting, when documented at the time of discharge. Thank you, Adelina Vizcaino RN Extension: [phone] Please use your independent medical judgment in providing your response. THIS QUERY IS PART OF THE PERMANENT MEDICAL RECORD Provider Response: Other Other Diagnosis: In regards to the query, I am unable to provide further information other than what appears in my H&P.
[2021-02-21 14:33] LABS: Lactic Acid 2.8 mmol/L (0.5-2.0)
[2021-02-21 14:34] LABS: Anion Gap 13 (12-20); Blood Urea Nitrogen 63 mg/dL (9-16); Calcium 7.8 mg/dL (8.4-10.2); Carbon Dioxide 20 mmol/L (22-29); Chloride 117 mmol/L (96-108); Estimated Glomerular Filt Rate 27; Glucose Random 584 mg/dL (60-115); Phosphorus 3.4 mg/dL (2.7-4.5); Potassium 3.3 mmol/L (3.3-5.1); Reflex Lactate? Lactic Acid Added; Sodium 147 mmol/L (135-145)
[2021-02-21 14:40] LABS: Cancel Lactic Acid Canceled
[2021-02-21] MEDS: KCl 20 mEq in 0.45% Sod 20 MEQ/1,000 ML IV.SOLN 100 MEQ IVCONT (14:57)
[2021-02-21] MEDS: Insulin Regular, Human 100 UNIT/ML 3 ML VIAL 15 UNIT IVPUSH (15:05)
--- NOTE | 2021-02-21 15:58 | MHC.CM.PN ---
Patient remains in ICU. Blood pressure and heartrate decreased. Currently on Dopamine drip. 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 Per Dr Weston, he spoke with patient's HCP. At this time, patient is currently DNR/DNI. Continue to monitor for d/c needs.
[2021-02-21 16:30] LABS: Glucose, Whole Blood 173 mg/dL (60-115)
[2021-02-21 18:05] LABS: Glucose, Whole Blood 96 mg/dL (60-115)
[2021-02-21 19:29] LABS: Glucose, Whole Blood 101 mg/dL (60-115)
[2021-02-21 20:14] LABS: TSH reflex Free T4 0.32 uIU/mL (0.32-4.0)
[2021-02-21] MEDS: cefTRIAXone sodium 1 GM in 0.9 % Sodium Chloride 50 ML IV (20:36)
[2021-02-21 20:46] LABS: Troponin-I High Sensitivity 821.1 ng/L (<3.5-17.0)
[2021-02-21 20:57] LABS: Anion Gap 14 (12-20); Blood Urea Nitrogen 53 mg/dL (9-16); Calcium 8.6 mg/dL (8.4-10.2); Carbon Dioxide 21 mmol/L (22-29); Chloride 122 mmol/L (96-108); Creatinine Clr Calc Pharmacy 27.2; Estimated Glomerular Filt Rate 33; Glucose Random 104 mg/dL (60-115); Phosphorus 3.2 mg/dL (2.7-4.5); Potassium 4.2 mmol/L (3.3-5.1); Sodium 153 mmol/L (135-145)
[2021-02-21] MEDS: DOPamine HCL/D5W 400 MG/250 ML PLAST..BAG 23.4 MG IVCONT (21:05)
[2021-02-21] MEDS: Heparin Sodium,Porcine/1/2NS 25,000 UNIT/250 ML IV.SOLN 7.92 UNIT IVCONT (22:15)
[2021-02-21] MEDS: Atorvastatin Calcium 40 MG TABLET PO (22:16)
[2021-02-21] MEDS: Aspirin Enteric Coated 81 MG TABLET.DR PO (22:17)
[2021-02-21 22:25] LABS: INTERNATIONAL NORM RATIO 1.1 (0.9-1.1); Prothrombin Time 12.8 SEC (9.9-13.0)
[2021-02-21 22:27] LABS: PTT Heparin Drip 29.3 SEC (53-77.9)
[2021-02-21] MEDS: Dextrose 5 % 1,000 ML 75 ML IVCONT (23:46)
[2021-02-22] VITALS (26 sets, daily range): BP systolic 94–151; BP diastolic 40–74; PULSE 42–92; RESP 11–22; TEMP 36–36.1; O2SAT 94–100; BMI 27.1
[2021-02-22 04:15] LABS: VBG Base Excess -1.9 mmol/L; VBG HCO3 23 mmol/L (22-26); VBG O2 % Saturation < 30.0 %; VBG pCO2 43 mmHg; VBG pH 7.34 (7.32-7.43); VBG pO2 26 mmHg
[2021-02-22 04:15] LABS: Hematocrit 36.7 % (37.0-47.0); Hemoglobin 11.4 g/dl (12.0-16.0); Mean Corpuscular HGB Conc 31.1 g/dl (31.0-35.0); Mean Corpuscular Volume 96.6 fL (80.0-98.0); Mean Platelet Volume 11.5 fL (9.4-12.3); Platelet Count 290 X10*3/uL (160-400); White Blood Count 16.4 X10*3/uL (4.8-10.8)
[2021-02-22 04:23] LABS: INTERNATIONAL NORM RATIO 1.2 (0.9-1.1); Prothrombin Time 13.1 SEC (9.9-13.0)
[2021-02-22 04:39] LABS: Lactic Acid 3.2 mmol/L (0.5-2.0); PTT Heparin Drip 133.6 SEC (53-77.9)
[2021-02-22 04:57] LABS: Albumin Level 2.9 g/dL (3.5-5.0); Anion Gap 14 (12-20); Blood Urea Nitrogen 46 mg/dL (9-16); Calcium 8.7 mg/dL (8.4-10.2); Carbon Dioxide 22 mmol/L (22-29); Chloride 120 mmol/L (96-108); Creatinine Clr Calc Pharmacy 26.9; Estimated Glomerular Filt Rate 32; Glucose Random 199 mg/dL (60-115); Phosphorus 2.7 mg/dL (2.7-4.5); Potassium 4.5 mmol/L (3.3-5.1); Sodium 151 mmol/L (135-145)
[2021-02-22 05:04] LABS: Troponin-I High Sensitivity 491.5 ng/L (<3.5-17.0)
[2021-02-22 05:40] LABS: Procalcitonin 0.28 ng/mL
[2021-02-22] MEDS: Albumin Human 25 % 100 ML IV ×2 (05:46→07:24)
[2021-02-22 06:12] LABS: Reflex Lactate? Lactic Acid Added
[2021-02-22 06:30] LABS: PTT Heparin Drip 79.7 SEC (53-77.9)
[2021-02-22 07:25] LABS: ~Lactic Acid-LAB USE ONLY 3.2 mmol/L (0.5-2.0)
[2021-02-22 08:44] LABS: Reflex Lactate? 2 Y
[2021-02-22 08:53] LABS: Venous Blood Gas Refer to POC result
--- NOTE | 2021-02-22 09:13 | PM.PNNEP ---
Subjective Subjective Date of Service: 02/22/21 Interval history: seen and examined lethargic Physical Exam Vital Signs: Vital Signs: Last Vital Signs Temp 96.9 F 02/22/21 08:00 Pulse 53 02/22/21 09:00 Resp 14 02/22/21 09:00 BP 128/40 L 02/22/21 09:00 Pulse Ox 99 02/22/21 09:00 BMI result Body Mass Index 27.1 Const: General: ill appearing HENMT: Head: Yes normocephalic and Yes atraumatic Neck: Neck: Yes supple Resp: Auscultation: diminished lung sounds Cardio: Heart sounds: S1 normal heart sound present and S2 normal heart sound present GI: Palpation (GI): Soft to palpation and nontender Extrem: General: Yes edema Objective Data Labs CBC & Chem 7: 02/22/21 04:04 02/22/21 04:04 Labs: Laboratory Results - last 24 hr 02/21/21 02/21/21 02/21/21 12:22 12:22 16:20 WBC RBC Hgb Hct MCV MCH MCHC RDW Plt Count MPV Absolute Nucleated RBC Nucleated RBC % (auto) PT INR PTT (Heparin Protocol) VBG pH VBG pCO2 VBG pO2 VBG HCO3 VBG O2 Saturation VBG Base Excess Sodium 147 H Potassium 3.3 Chloride 117 H Carbon Dioxide 20 L Anion Gap 13 BUN 63 H Creatinine 1.82 H Estim Creat Clear Calc 23.0 Estimated GFR 27 POC Glucose 173 H Random Glucose 584 H* Lactic Acid 2.8 H* Lactic Acid F/U @ 2Hr Calcium 7.8 L D Phosphorus 3.4 Magnesium 2.0 Troponin I High Sens Albumin Procalcitonin TSH 0.32 02/21/21 02/21/21 02/21/21 18:02 19:25 20:12 WBC RBC Hgb Hct MCV MCH MCHC RDW Plt Count MPV Absolute Nucleated RBC Nucleated RBC % (auto) PT INR PTT (Heparin Protocol) VBG pH VBG pCO2 VBG pO2 VBG HCO3 VBG O2 Saturation VBG Base Excess Sodium 153 H Potassium 4.2 D Chloride 122 H Carbon Dioxide 21 L Anion Gap 14 BUN 53 H Creatinine 1.54 H Estim Creat Clear Calc 27.2 Estimated GFR 33 POC Glucose 96 101 Random Glucose 104 D Lactic Acid Lactic Acid F/U @ 2Hr Calcium 8.6 D Phosphorus 3.2 Magnesium 2.0 Troponin I High Sens Albumin Procalcitonin TSH 02/21/21 02/21/21 02/22/21 20:12 21:58 04:04 WBC 16.4 H RBC 3.80 L Hgb 11.4 L Hct 36.7 L MCV 96.6 MCH 30.0 MCHC 31.1 RDW 13.0 Plt Count 290 D MPV 11.5 Absolute Nucleated RBC 0.000 Nucleated RBC % (auto) 0.0 PT 12.8 INR 1.1 PTT (Heparin Protocol) 29.3 L VBG pH VBG pCO2 VBG pO2 VBG HCO3 VBG O2 Saturation VBG Base Excess Sodium Potassium Chloride Carbon Dioxide Anion Gap BUN Creatinine Estim Creat Clear Calc Estimated GFR POC Glucose Random Glucose Lactic Acid Lactic Acid F/U @ 2Hr Calcium Phosphorus Magnesium Troponin I High Sens 821.1 H* D Albumin Procalcitonin TSH 02/22/21 02/22/21 02/22/21 04:04 04:04 04:04 WBC RBC Hgb Hct MCV MCH MCHC RDW Plt Count MPV Absolute Nucleated RBC Nucleated RBC % (auto) PT INR PTT (Heparin Protocol) VBG pH VBG pCO2 VBG pO2 VBG HCO3 VBG O2 Saturation VBG Base Excess Sodium 151 H Potassium 4.5 Chloride 120 H Carbon Dioxide 22 Anion Gap 14 BUN 46 H Creatinine 1.56 H Estim Creat Clear Calc 26.9 Estimated GFR 32 POC Glucose Random Glucose 199 H Lactic Acid 3.2 H* Lactic Acid F/U @ 2Hr Calcium 8.7 Phosphorus 2.7 Magnesium 2.0 Troponin I High Sens Albumin 2.9 L Procalcitonin 0.28 TSH 02/22/21 02/22/21 02/22/21 04:04 04:04 04:08 WBC RBC Hgb Hct MCV MCH MCHC RDW Plt Count MPV Absolute Nucleated RBC Nucleated RBC % (auto) PT 13.1 H INR 1.2 H PTT (Heparin Protocol) 133.6 H* D VBG pH 7.34 VBG pCO2 43 VBG pO2 26 VBG HCO3 23 VBG O2 Saturation < 30.0 VBG Base Excess -1.9 Sodium Potassium Chloride Carbon Dioxide Anion Gap BUN Creatinine Estim Creat Clear Calc Estimated GFR POC Glucose Random Glucose Lactic Acid Lactic Acid F/U @ 2Hr Calcium Phosphorus Magnesium Troponin I High Sens 491.5 H* Albumin Procalcitonin TSH 02/22/21 02/22/21 05:49 06:39 WBC RBC Hgb Hct MCV MCH MCHC RDW Plt Count MPV Absolute Nucleated RBC Nucleated RBC % (auto) PT INR PTT (Heparin Protocol) 79.7 H D VBG pH VBG pCO2 VBG pO2 VBG HCO3 VBG O2 Saturation VBG Base Excess Sodium Potassium Chloride Carbon Dioxide Anion Gap BUN Creatinine Estim Creat Clear Calc Estimated GFR POC Glucose Random Glucose Lactic Acid Lactic Acid F/U @ 2Hr 3.2 H* Calcium Phosphorus Magnesium Troponin I High Sens Albumin Procalcitonin TSH Microbiology Microbiology Results: Microbiology 02/20/21 11:13 Blood - Venous Blood Culture - Preliminary No growth after 24 hours. 02/20/21 11:11 Blood - Venous Blood Culture - Preliminary No growth after 24 hours. 02/20/21 Unknown Urine Catheterized - Bedoya Catheter Urine Culture - Final Procedures Date of Service Date of Service: 02/22/21 Assessment & Plan Assessment and plan (1) JAMIN (acute kidney injury): Status: Acute (2) Hypernatremia: Status: Acute Assessment and Plan: Scr stable JAMIN due to compromised kidney perfusion and tubular stress elevated serum sodium due to free water deficit baseline Scr ~ 1 mg/dl REC hypotonic fluid follow kidney function and electrolytes Time Spent With Patient Time: Total time spent is greater than 50% in coordination of care (as documented) at patient's floor/unit and/or counseling patient: Progress Note: Quality Stroke Does the patient have a stroke diagnosis?: No
--- NOTE | 2021-02-22 10:12 | MHC.CLN ---
F/U ADMITTED 02/20/21. NO DIET ORDER. PER MD, WILL TRIAL WITH PUDDING TODAY. CONSIDERED ALTERNATE NUTRITION IF NEEDED. FOLLOWING WITH TEAM.
--- NOTE | 2021-02-22 11:59 | P.PNCC_ITS ---
Subjective Subjective Date of Service: 02/22/21 Interval History: Mrs. Ballesteros was admitted to the ICU yesterday afternoon (Feb 20) with presumed urosepsis, septic shock, hypovolemia, and severe hypernatremia. 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 The patient had COVID-19 infection in June of 2019.? She has had the 2 dose vaccine, plus a booster.? She had her flu shot last month. Current medications include: MiraLax Ativan 1 mg qhs Pepcid Haldol 25 mg IM q2 weeks Remeron 7.5 mg qhs Bowel protocol Tums prn The patient is allergic to Seroquel. The patient lives in [facility].? The transfer note from [facility] reports that the patient is nonverbal at baseline, but will make sounds and noises.? At baseline the patient is contractured but will move extremities on her own.? She is bedbound. According to the transfer note from [facility], the patient's healthcare proxy is Siri Reyes ([phone]).? The transfer documents include a MOLST form dated April 02, 2018, and signed by the patient.? That MOLST form indicates to attempt resuscitation, and intubate and ventilate.? Other issues on page 2 of the MOLST form were marked undecided. I spoke with Zahira Reyes at some length.? Ms. Reyes is the patient's 1st cousin.? She is the patient's closest living relative.? Ms. Reyes is 89 years old and by her own admission, does not have the best memory.? She lives in her own home with her grandson Johnathon.? She told me that the patient moved to [facility] about 2 years ago.? The last time she visited the patient with Johnathon was maybe 3 months ago.? Ms. Reyes told me that at that time, the patient was slurring her speech and not making any sense.? Johnathon told me the same thing. HISTORY OF PRESENT ILLNESS:? The pt was sent to the ED Dec 22nd bec of abnormal labs.? [facility] which revealed a WBC 17, sodium of 159 (baseline 137), BUN/creatinine of 113/3.07 (baseline 45/1.93).? Hb was 14; baseline hemoglobin is 10.9.? ?Urinalysis showed 646 wbc's, large leukocyte esterase, and heavy bacteria.? Urine culture was sent.? All those labs were done at [facility].? I called over to the [facility] micro lab and was told that her urine culture was growing >100,000 gram-negative rods.? The patient was also reported to be more lethargic than usual.? We were told that the labs just came back, resulting in her transfer to the [place] ED.? The patient did not get any antibiotics at the home. In the ED, the patient was lethargic, breathing easy, aroused to voice and sternal rub but did not verbalize or localize, did not follow commands.? HR was 69, BP 70s-80s systolic, Sat 89% on room air and 100% on 2 L NC.? Rectal temperature was 99.4 degrees.? General physical exam was otherwise remarkable for contracted lower extremities. Labs in the ED were notable for a white count of 17, hemoglobin of 11.6, sodium of 162, BUN/creatinine of 125/2.9, chloride 126, potassium 3.7, bicarb 22, glucose 134, normal LFTs, albumin 2.9, normal troponin, and lactic acid of 3.5.? COVID negative.? Abd CT showed bilateral renal cysts, with numerous punctate cortical calcifications in both kidneys.? There were no renal stones or hydronephrosis.? The rectum was markedly dilated with stool; the rectosigmoid was full of stool, all the way down to the anus. The patient was given a 30 cc/kg sepsis bolus of NS.? She was given cefepime.? After labs came back, she was started on D5W.? Blood pressure improved to 101/40, but then dropped again into the 80s.? Ultrasound examination of the neck was unable to find a jugular vein, and therefore no central line was placed.? The patient was started on peripheral low-dose Levophed. The patient was admitted to ICU.? My bedside echocardiogram showed: 1.? Probably normal LV wall thickness. 2. LV cavity normal size.? Overall wall motion looked slightly hypokinetic.? Estimated EF about 50%.? No gross RWMAs. 3. RV size probably normal.? Unable to assess function. 4. Unable to evaluate atria. 5. Unable to adequately visualize aortic valve, but it looked calcified. 6. Mitral valve normal morphology, with no MR by color flow. 7. Unable to visualize tricuspid valve.? Continuous-wave Doppler measured 1.8 m/sec. 8. Unable to visualize IVC. The patient was continued on D5W.? She was manually disimpacted for a large amount of soft brown stool, and then given an enema.? Overnight her HR dropped into the 30s.? She did not respond to atropine.? She was started on dopamine. We?ve been tapering the dopamine since then.? The patient?s sodium level is coming down, and her renal indices are improving.? Her mental status is progressively lightening. ?I had the clin tech echo her IVC yesterday.? The IVC measured about 0.95 cm, and had at least 50% insp collapse. We continued the D5W infusion. ?Last night, we checked a troponin because of the bradycardia, and it came back at 821 -- compared to 23 on admission the day before.? Her EKG last night showed an old IWMI but no acute ischemia.? We started the patient on a hepain infusion.? She was unable to take ASA or statin This morning, she is appropriately responsive to questions with a few words that are slurred, but intelligible.? She passed a bedside swallow evaluation. ?Breathing easy with Sat 100% on room air.? VBG showed 7.34/43/-1.? HR 92, regular rhythm on the monitor, but I?m not sure whether it?s SR, junctional, or a regular afib.? BP 151/58 on Dopamine 8ug. ?She remains afebrile.? No jugular venous distention with the head of the bed at 30-40 degrees.? Chest is clear to auscultation, with a normal expiratory phase.? Heart tones are soft and regular.? I heard no murmur or gallops.? The abdomen is soft and benign.? She has maybe trace peripheral edema. LABORATORY DATA:? Below.? Notably, but count this morning is way down, hemoglobin is down (after resuscitation).? PTT is 79.? Sodium is back up to 151, BUN/creatinine are down to 46/1.56 glucose 199, albumin is down to 2.9, procalcitonin is 0.2.? Troponin is down to 491.? Lactic acid is still 3.2. MICROBIOLOGY:? Urine culture came back from [facility] showing >100,000 Klebsiella that was mostly sensitive.? Results are in the patient's chart.? Her antibiotics were changed to ceftriaxone.? Blood cultures are negative. IMPRESSION: 1. Baseline schizoaffective disorder, dementia, parkinsonism.? At baseline she is boarded leak minimally communicative.? So it would seem that she is back to her baseline now.? It appears that she should be able to eat enough, with someone patiently feeding her. 2. Urosepsis with GNR UTI.? Blood cultures are negative so far.? Continuing ceftriaxone. 3.? Septic shock.? Continuing volume resuscitation.? I don?t understand why her lactates are persistently positive.? Even if she?s still mildly hypovolemic, that should not cause an elevated lactate. 4. Bradycardia.? Could be associated with inferior ischemia.? TSH was low.? Tapering the dopamine. 5. Elevated troponin.? Looks like she had a NSTEMI.? Plan continue the heparin for 48 hrs.? Started ASA and statin this morning. 6. I?m guessing that she?s probably pretty close to euvolemia.? Her creat today is significantly below her baseline.? I?ll change her fluids to maintenance D5W. 7. Acute on chronic kidney injury.? Secondary to sepsis and hypovolemia 8. Severe hypernatremia.? Secondary to severe dehydration.? Next f/u labs tomorrow AM. 9. Severe obstipation.? Dehydration doesn?t help.? Needs a daily laxative.? We?ll give her a Dulcolax today, and start her on daily lactulose tomorrow. 10. Moderate protein calorie malnutrition.? The fact that she became so dehydrated and hypernatremic may be a sign that her brain function is reaching end-stage and she can?t take in enough nutrition, or at least enough hydration.? 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 They both agreed that it made no sense to put her on a ventilator or do CPR.? I told them we would not put her on a respirator or do chest compressions if something happened, and they both readily agreed.? Nurse Braxton Kelly listened in on the conversation and was witness to their statements. I have written DNR/DNI orders, and discussed the situation with case management.? At some point before she leaves the hospital, the patient should have her MOLST form revised. Critical Care Time (minutes): 60 Physical Exam Vital Signs: Vital Signs: Last Vital Signs Temp 96.9 F 02/22/21 08:00 Pulse 61 02/22/21 11:00 Resp 16 02/22/21 11:00 BP 116/49 L 02/22/21 11:00 Pulse Ox 100 02/22/21 11:00 BMI result Body Mass Index 27.1 Objective Data Labs CBC & Chem 7: 02/22/21 04:04 02/22/21 04:04 Labs: Laboratory Results - last 24 hr 02/21/21 02/21/21 02/21/21 12:22 12:22 16:20 WBC RBC Hgb Hct MCV MCH MCHC RDW Plt Count MPV Absolute Nucleated RBC Nucleated RBC % (auto) PT INR PTT (Heparin Protocol) VBG pH VBG pCO2 VBG pO2 VBG HCO3 VBG O2 Saturation VBG Base Excess Sodium 147 H Potassium 3.3 Chloride 117 H Carbon Dioxide 20 L Anion Gap 13 BUN 63 H Creatinine 1.82 H Estim Creat Clear Calc 23.0 Estimated GFR 27 POC Glucose 173 H Random Glucose 584 H* Lactic Acid 2.8 H* Lactic Acid F/U @ 2Hr Lactic Acid F/U @ 4Hr Calcium 7.8 L D Phosphorus 3.4 Magnesium 2.0 Troponin I High Sens Albumin Procalcitonin TSH 0.32 02/21/21 02/21/21 02/21/21 18:02 19:25 20:12 WBC RBC Hgb Hct MCV MCH MCHC RDW Plt Count MPV Absolute Nucleated RBC Nucleated RBC % (auto) PT INR PTT (Heparin Protocol) VBG pH VBG pCO2 VBG pO2 VBG HCO3 VBG O2 Saturation VBG Base Excess Sodium 153 H Potassium 4.2 D Chloride 122 H Carbon Dioxide 21 L Anion Gap 14 BUN 53 H Creatinine 1.54 H Estim Creat Clear Calc 27.2 Estimated GFR 33 POC Glucose 96 101 Random Glucose 104 D Lactic Acid Lactic Acid F/U @ 2Hr Lactic Acid F/U @ 4Hr Calcium 8.6 D Phosphorus 3.2 Magnesium 2.0 Troponin I High Sens Albumin Procalcitonin [facility] 02/21/21 02/21/21 02/22/21 20:12 21:58 04:04 WBC 16.4 H RBC 3.80 L Hgb 11.4 L Hct 36.7 L MCV 96.6 MCH 30.0 MCHC 31.1 RDW 13.0 Plt Count 290 D MPV 11.5 Absolute Nucleated RBC 0.000 Nucleated RBC % (auto) 0.0 PT 12.8 INR 1.1 PTT (Heparin Protocol) 29.3 L VBG pH VBG pCO2 VBG pO2 VBG HCO3 VBG O2 Saturation VBG Base Excess Sodium Potassium Chloride Carbon Dioxide Anion Gap BUN Creatinine Estim Creat Clear Calc Estimated GFR POC Glucose Random Glucose Lactic Acid Lactic Acid F/U @ 2Hr Lactic Acid F/U @ 4Hr Calcium Phosphorus Magnesium Troponin I High Sens 821.1 H* D Albumin Procalcitonin TSH 02/22/21 02/22/21 02/22/21 04:04 04:04 04:04 WBC RBC Hgb Hct MCV MCH MCHC RDW Plt Count MPV Absolute Nucleated RBC Nucleated RBC % (auto) PT INR PTT (Heparin Protocol) VBG pH VBG pCO2 VBG pO2 VBG HCO3 VBG O2 Saturation VBG Base Excess Sodium 151 H Potassium 4.5 Chloride 120 H Carbon Dioxide 22 Anion Gap 14 BUN 46 H Creatinine 1.56 H Estim Creat Clear Calc 26.9 Estimated GFR 32 POC Glucose Random Glucose 199 H Lactic Acid 3.2 H* Lactic Acid F/U @ 2Hr Lactic Acid F/U @ 4Hr Calcium 8.7 Phosphorus 2.7 Magnesium 2.0 Troponin I High Sens Albumin 2.9 L Procalcitonin 0.28 TSH 02/22/21 02/22/21 02/22/21 04:04 04:04 04:08 WBC RBC Hgb Hct MCV MCH MCHC RDW Plt Count MPV Absolute Nucleated RBC Nucleated RBC % (auto) PT 13.1 H INR 1.2 H PTT (Heparin Protocol) 133.6 H* D VBG pH 7.34 VBG pCO2 43 VBG pO2 26 VBG HCO3 23 VBG O2 Saturation < 30.0 VBG Base Excess -1.9 Sodium Potassium Chloride Carbon Dioxide Anion Gap BUN Creatinine Estim Creat Clear Calc Estimated GFR POC Glucose Random Glucose Lactic Acid Lactic Acid F/U @ 2Hr Lactic Acid F/U @ 4Hr Calcium Phosphorus Magnesium Troponin I High Sens 491.5 H* Albumin Procalcitonin TSH 02/22/21 02/22/21 02/22/21 05:49 06:39 09:00 WBC RBC Hgb Hct MCV MCH MCHC RDW Plt Count MPV Absolute Nucleated RBC Nucleated RBC % (auto) PT INR PTT (Heparin Protocol) 79.7 H D VBG pH VBG pCO2 VBG pO2 VBG HCO3 VBG O2 Saturation VBG Base Excess Sodium Potassium Chloride Carbon Dioxide Anion Gap BUN Creatinine Estim Creat Clear Calc Estimated GFR POC Glucose Random Glucose Lactic Acid Lactic Acid F/U @ 2Hr 3.2 H* Lactic Acid F/U @ 4Hr 3.0 H* Calcium Phosphorus Magnesium Troponin I High Sens Albumin Procalcitonin TSH Microbiology Microbiology Results: Microbiology 02/20/21 11:13 Blood - Venous Blood Culture - Preliminary No growth after 24 hours. 02/20/21 11:11 Blood - Venous Blood Culture - Preliminary No growth after 24 hours. 02/20/21 Unknown Urine Catheterized - Bedoya Catheter Urine Culture - Final Quality Stroke Does the patient have a stroke diagnosis?: No VTE Prior VTE?: No VTE Risk Level:: Medical - moderate - high VTE Device Contraindication: N/A - Device Ordered VTE Drug Contraindication: N/A - Med Ordered
[2021-02-22] MEDS: Aspirin Enteric Coated 81 MG TABLET.DR PO (12:37)
[2021-02-22] MEDS: Atorvastatin Calcium 40 MG TABLET PO (12:37)
[2021-02-22] MEDS: Lactulose 20 GM/30 ML SOLUTION 10 GM PO (12:37)
[2021-02-22] MEDS: Dextrose 5 % 1,000 ML 75 ML IVCONT (12:39)
[2021-02-22 13:33] LABS: PTT Heparin Drip 52.5 SEC (53-77.9)
--- NOTE | 2021-02-22 14:09 | MHC.CM.PN ---
Pt is a LTC resident from [facility] and should return for continuation of care once medically stable. Pt has a HCP who spoke with MD about no CPR or intubation: It is unclear if pt's HCP is activated - message left for MD to address. Updates remitted to [facility]. CM to follow
[2021-02-22] MEDS: Heparin Sodium,Porcine 5,000 UNIT/ML VIAL 2600 UNIT IVPUSH (15:13)
[2021-02-22] MEDS: DOPamine HCL/D5W 400 MG/250 ML PLAST..BAG 5.85 MG IVCONT (15:16)
[2021-02-22 21:33] LABS: PTT Heparin Drip 133.4 SEC (53-77.9)
[2021-02-22 23:13] LABS: PTT Heparin Drip 67.4 SEC (53-77.9)
[2021-02-22] MEDS: cefTRIAXone sodium 1 GM in 0.9 % Sodium Chloride 50 ML IV (23:26)
[2021-02-22] MEDS: Heparin Sodium,Porcine/1/2NS 25,000 UNIT/250 ML IV.SOLN 3.96 UNIT IVCONT (23:27)
[2021-02-23] VITALS (16 sets, daily range): BP systolic 103–137; BP diastolic 44–80; PULSE 48–64; RESP 12–18; TEMP 36.1–37.5; O2SAT 97–100; BMI 27.3
--- NOTE | 2021-02-23 | ECG_ITS ---
Test Reason : ? rhythm Blood Pressure : / mmHG Vent. Rate : 060 BPM Atrial Rate : 060 BPM P-R Int : 158 ms QRS Dur : 074 ms QT Int : 440 ms P-R-T Axes : 100 -54 038 degrees QTc Int : 440 ms Artifact in tracing Normal sinus rhythm Left axis deviation Low voltage QRS Inferior infarct , age undetermined Cannot rule out Anterior infarct , age undetermined Abnormal ECG Referred By: Mike Weston Electronically Signed By:DELILAH MAN
[2021-02-23 05:24] LABS: Hematocrit 30.9 % (37.0-47.0); Hemoglobin 9.8 g/dl (12.0-16.0); Mean Corpuscular HGB Conc 31.7 g/dl (31.0-35.0); Mean Corpuscular Hemoglobin 29.8 pg (27.0-33.0); Mean Corpuscular Volume 93.9 fL (80.0-98.0); Mean Platelet Volume 11.7 fL (9.4-12.3); Platelet Count 253 X10*3/uL (160-400); Red Blood Count 3.29 X10*6/uL (4.20-5.50); Red Cell Distribution Width 12.9 % (11.0-16.0); White Blood Count 11.1 X10*3/uL (4.8-10.8)
[2021-02-23 05:35] LABS: Lactic Acid 0.9 mmol/L (0.5-2.0)
[2021-02-23 05:40] LABS: Albumin Level 3.5 g/dL (3.5-5.0); Anion Gap 10 (12-20); Blood Urea Nitrogen 33 mg/dL (9-16); Calcium 8.9 mg/dL (8.4-10.2); Carbon Dioxide 24 mmol/L (22-29); Chloride 116 mmol/L (96-108); Creatinine Clr Calc Pharmacy 34.4; Estimated Glomerular Filt Rate 42; Glucose Random 109 mg/dL (60-115); Magnesium 1.8 mg/dL (1.6-2.6); Phosphorus 2.4 mg/dL (2.7-4.5); Potassium 3.4 mmol/L (3.3-5.1); Sodium 147 mmol/L (135-145)
[2021-02-23 05:42] LABS: PTT Heparin Drip 54.8 SEC (53-77.9)
[2021-02-23 05:45] LABS: Troponin-I High Sensitivity 249.4 ng/L (<3.5-17.0)
[2021-02-23] MEDS: Dextrose 5 % 1,000 ML 75 ML IVCONT (06:36)
--- NOTE | 2021-02-23 08:50 | PM.PNNEP ---
Subjective Subjective Date of Service: 02/23/21 Interval history: seen and examined events reviewed letahrgic Physical Exam Vital Signs: Vital Signs: Last Vital Signs Temp 97.7 F 02/23/21 07:00 Pulse 55 02/23/21 07:00 Resp 14 02/23/21 07:00 BP 113/49 L 02/23/21 07:00 Pulse Ox 100 02/23/21 07:00 BMI result Body Mass Index 27.3 Const: General: ill appearing HENMT: Head: Yes normocephalic and Yes atraumatic Neck: Neck: Yes supple Resp: Auscultation: diminished lung sounds Cardio: Heart sounds: S1 normal heart sound present and S2 normal heart sound present GI: Palpation (GI): Soft to palpation and nontender Extrem: General: Yes edema Objective Data Labs CBC & Chem 7: 02/23/21 05:03 02/23/21 05:03 Labs: Laboratory Results - last 24 hr 02/22/21 02/22/21 02/22/21 09:00 12:52 20:44 WBC RBC Hgb Hct MCV MCH MCHC RDW Plt Count MPV Absolute Nucleated RBC Nucleated RBC % (auto) PTT (Heparin Protocol) 52.5 L D 133.4 H* D Sodium Potassium Chloride Carbon Dioxide Anion Gap BUN Creatinine Estim Creat Clear Calc Estimated GFR Random Glucose Lactic Acid Lactic Acid F/U @ 4Hr 3.0 H* Calcium Phosphorus Magnesium Troponin I High Sens Albumin 02/22/21 02/23/21 02/23/21 22:55 05:03 05:03 WBC 11.1 H RBC 3.29 L Hgb 9.8 L Hct 30.9 L MCV 93.9 MCH 29.8 MCHC 31.7 RDW 12.9 Plt Count 253 MPV 11.7 Absolute Nucleated RBC 0.000 Nucleated RBC % (auto) 0.0 PTT (Heparin Protocol) 67.4 D Sodium 147 H Potassium 3.4 D Chloride 116 H Carbon Dioxide 24 Anion Gap 10 L BUN 33 H Creatinine 1.23 Estim Creat Clear Calc 34.4 Estimated GFR 42 Random Glucose 109 Lactic Acid Lactic Acid F/U @ 4Hr Calcium 8.9 Phosphorus 2.4 L Magnesium 1.8 Troponin I High Sens Albumin 3.5 D 02/23/21 02/23/21 02/23/21 05:03 05:03 05:03 WBC RBC Hgb Hct MCV MCH MCHC RDW Plt Count MPV Absolute Nucleated RBC Nucleated RBC % (auto) PTT (Heparin Protocol) 54.8 Sodium Potassium Chloride Carbon Dioxide Anion Gap BUN Creatinine Estim Creat Clear Calc Estimated GFR Random Glucose Lactic Acid 0.9 Lactic Acid F/U @ 4Hr Calcium Phosphorus Magnesium Troponin I High Sens 249.4 H* Albumin Microbiology Microbiology Results: Microbiology 02/20/21 11:13 Blood - Venous Blood Culture - Preliminary No growth after 48 hours. 02/20/21 11:11 Blood - Venous Blood Culture - Preliminary No growth after 48 hours. 02/20/21 Unknown Urine Catheterized - Bedoya Catheter Urine Culture - Final Procedures Date of Service Date of Service: 02/23/21 Assessment & Plan Assessment and plan (1) JAMIN (acute kidney injury): Status: Acute (2) Hypernatremia: Status: Acute Assessment and Plan: kidney function better free water deficit improving JAMIN due to compromised kidney perfusion and tubular stress elevated serum sodium due to free water deficit baseline Scr ~ 1 mg/dl REC continue hypotonic fluid follow kidney function and electrolytes Time Spent With Patient Time: Total time spent is greater than 50% in coordination of care (as documented) at patient's floor/unit and/or counseling patient: Progress Note: Quality Stroke Does the patient have a stroke diagnosis?: No
[2021-02-23] MEDS: Potassium Chloride/H20 10 MEQ/100 ML PIGGYBACK 100 MEQ IV ×2 (09:06→10:13)
[2021-02-23] MEDS: Aspirin Enteric Coated 81 MG TABLET.DR PO (09:12)
[2021-02-23] MEDS: Atorvastatin Calcium 40 MG TABLET PO (09:12)
[2021-02-23] MEDS: Potassium Phosphate/NS 15 MMOL/250 ML PLAST..BAG 62.5 MMOL IV (09:23)
[2021-02-23 11:43] LABS: PTT Heparin Drip 59.5 SEC (53-77.9)
--- NOTE | 2021-02-23 13:46 | P.PNCC_ITS ---
Subjective Subjective Date of Service: 02/23/21 Interval History: Mrs. Ballesteros was admitted to the ICU Feb 20 with urosepsis, septic shock, hypovolemia, and severe hypernatremia. 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 The patient had COVID-19 infection in June of 2019.? She has had the two-dose vaccine, plus a booster.? She had her flu shot last month. Current medications include: MiraLax Ativan 1 mg qhs Pepcid Haldol 25 mg IM q2 weeks Remeron 7.5 mg qhs Bowel protocol Tums prn The patient is allergic to Seroquel. The patient lives in [facility].? The transfer note from [facility] reports that the patient is nonverbal at baseline, but will make sounds and noises.? At baseline the patient is contractured but will move extremities on her own.? She is bedbound. According to the transfer note from [facility], the patient's healthcare proxy is Siri Reyes ([phone]).? The transfer documents include a MOLST fo rm dated April 02, 2018, and signed by the patient.? That MOLST form indicates to attempt resuscitation, and intubate and ventilate.? Other issues on page 2 of the MOLST form were marked undecided. I spoke with Zahira Reyes at some length.? Ms. Reyes is the patient's 1st cousin.? She is the patient's closest living relative.? Ms. Reyes is 89 years old and by her own admission, does not have the best memory.? She lives in her own home with her grandson Johnathon.? She told me that the patient moved to [facility] about 2 years ago.? The last time she visited the patient with Johnathon was maybe 3 months ago.? Ms. Reyes told me that at that time, the patient was slurring her speech and not making any sense.? Johnathon told me the same thing. HISTORY OF PRESENT ILLNESS:? The pt was sent to the ED Feb 20 bec of abnormal labs.? [facility] which revealed a WBC 17, sodium of 159 (baseline 137), BUN/creatinine of 113/3.07 (baseline 45/1.93).? Hb was 14; baseline hemoglobin is 10.9.? ?Urinalysis showed 646 wbc's, large leukocyte esterase, and heavy bacteria.? Urine culture was sent.? All those labs were done at [facility].? I called over to the [facility] micro lab and was told that her urine culture was growing >100,000 gram-negative rods.? The patient was also reported to be more lethargic than usual.? We were told that the labs just came back, resulting in her transfer to the [place] ED.? The pat iescottie did not get any antibiotics at the home. In the ED, the patient was lethargic, breathing easy, aroused to voice and sternal rub but did not verbalize or localize, did not follow commands.? HR was 69, BP 70s-80s systolic, Sat 89% on room air and 100% on 2 L NC.? Rectal tem perature was 99.4 degrees.? General physical exam was otherwise remarkable for contracted lower extremities. Labs in the ED were notable for a white count of 17, hemoglobin of 11.6, sodium of 162, BUN/creatinine of 125/2.9, chloride 126, potassium 3.7, bicarb 22, glucose 134, normal LFTs, albumin 2.9, normal troponin, and lactic acid of 3.5.? COVID negative.? Abd CT showed bilateral renal cysts, with numerous punctate cortical calcifications in both kidneys.? There were no renal stones or hydronephrosis.? The rectum was markedly dilated with stool; the rectosigmoid was full of stool, all the way down to the anus. The patient was given a 30 cc/kg sepsis bolus of NS.? She was given cefepime.? After labs came back, she was started on D5W.? Blood pressure improved to 101/40, but then dropped again into the 80s.? Ultrasound examination of the neck was unable to find a jugular vein, and therefore no central line was placed.? The patient was started on peripheral low-dose Levophed. The patient was admitted to ICU.? My bedside echocardiogram showed: 1.? Probably normal LV wall thickness. 2. LV cavity normal size.? Overall wall motion looked slightly hypokinetic.? Estimated EF about 50%.? No gross RWMAs. 3. RV size probably normal.? Unable to assess function. 4. Unable to evaluate atria. 5. Unable to adequately visualize aortic valve, but it looked calcified. 6. Mitral valve normal morphology, with no MR by color flow. 7. Unable to visualize tricuspid valve.? Continuous-wave Doppler measured 1.8 m/sec. 8. Unable to visualize IVC. The patient was continued on D5W.? She was manually disimpacted for a large amount of soft brown stool, and then given an enema.? Overnight her HR dropped into the 30s.? She did not respond to atropine.? She was started on dopamine.? We checked a troponin because of the bradycardia, and it came back at 821 -- compared to 23 on admission.? Her EKG showed an old IWMI but no acute ischemia.? We started the patient on a heparin infusion, ASA and statin. I had the commercial hvac service technician echo her IVC on Feb 21.? Even after major volume resus citation, the IVC still measured only about 0.95 cm, and had at least 50% insp collapse. We continued the D5W infusion.? We?ve been tapering the dopamine.? The patient?s sodium level is down, and her renal indices are much improved.? Her mental status has also improved.? Yesterday, she was appropriately responsive to questions with a few words that were slurred, but intelligible.? She passed a bedside swallow evaluation.? This morning, she?s a little less verbal, but still able to say ?I like that? when we asked her if she wanted ice cream.? And she was able to swallow the ice cream when fed to her in small amounts.? She coughed when we tried liquids. She?s breathing easy with Sat 100% on room air.? Rhythm on the monitor is regular sinus (P waves are very flat, but she?s SR on an EKG).? She?s off the dopamine.? HR is 67, BP 103/44.? She remains afebrile.? No jugular venous distention with the head of the bed at 30-40 degrees.? Chest is clear to auscultation, with a normal expiratory phase.? Heart tones are soft and regular.? I heard no murmur or gallops.? The abdomen is soft and benign.? She has the trace peripheral edema. LABORATORY DATA:? Below.? Notably, white count is down further, hemoglobin is down (after resuscitation).? Sodium is down to 147, BUN/creatinine are down further.? Troponin is down further.? Lactic acid finally normalized. MICROBIOLOGY:? Urine culture came back from [facility] showing >100,000 Klebsiella that was mostly sensitive.? A copy of the results are in the patient's chart.? Her antibiotics were changed to ceftriaxone.? Blood cultures are negative. IMPRESSION: 1. Baseline schizoaffective disorder, dementia, parkinsonism.? At baseline she is reportedly minimally communicative.? So it would seem that she is back to her baseline now.? I think the main problem is that her WEEDER status is deteriorating to the point that she is no longer able to take in enough fluids to keep her adequately hydrated. ?Which means that she is at the natural end of life. ?(And a feeding tube is inappropriate for this kind of situation.) 2. Urosepsis with GNR UTI.? Blood cultures are negative so far.? Continuing ceftriaxone. 3. Septic shock.? Continuing IV D5W. 4. Bradycardia.? Could be associated with inferior ischemia.? She?s not hypothyroid.? Dopamine is off now and we will not restart it. 5. Elevated troponin.? Looks like she had a NSTEMI.? Given her overall situation, I?m discontinuing the heparin, ASA, and statin now. 6. Hypovolemia.? I?m guessing that she?s probably pretty close to euvolemia now.? Her creat today is significantly below her baseline.? I?ve changed her fluids to maintenance D5W.? But it?s clear that the IV fluids are the only thing keeping her from recurrent dehydration and severe hyponatremia. 7. Acute on chronic kidney injury.? Secondary to sepsis and hypovolemia 8. Severe hypernatremia.? Secondary to severe dehydration. 9. Severe obstipation.? Dehydration further contributes to the problem.? She needs a daily laxative.? Wrote her for daily lactulose, altho I?m not sure she can get that down. 10. At least moderate protein calorie malnutrition.? The fact that she became so dehydrated and hypernatremic is a sign that her brain function is reaching end-stage and she can?t take in enough calories and enough hydration.? (And as noted above, a feeding tube is not the answer.) On Feb 20, I spoke with Zahira Reyes and the grandson Johnathon about life support issues.? They both agreed that it made no sense to put her on a ventilator or do CPR.? I told them we would not put her on a respirator or do chest compressions if something happened, and they both readily agreed.? Nurse Sergio Kelly listened in on the conversation and was witness to their statements.? I wrote DNR/DNI orders, and discussed the situation with case management. The situation with the patient?s declining mental status and the fact that she?s at end of life has become clear over the last two days.? So I spoke with Zahira Reyes and her grandson again by telephone today and discussed the situation with them at some length.? They understand that her brain function is deterior ating and she is unable to take in adequate nutrition and hydration.? They understand that that means that she is at the end of life.? I suggested to them that [facility] should go back to the prison, and at the prison they can give her as much nutrition and hydration as they possibly can, but when her condition deteriorates, as it surely will, she should be allowed to at the prison and should not be sent back to the hospital. I explained to them what a MOLST form is and suggested that we fill one out.? They asked me to do that with them tomorrow.? The patient is ?stable? for transfer to med-surg.? I will go up to the floor and fill out the MOLST form with the next of kin tomorrow, with the floor nurse witnessing the telephone conversation. The current plan is to continue five days of abx and to continue IV hydration until the patient leaves the hospital.? She can be given lactulose and whatever nutrition and oral hydration we can get into her.? Other than that, I would plan on no other medications or treatment. Signed out to the hospitalists. Time:? 90+ min.? ([id number] [phone] [id number]) Critical Care Time (minutes): 0 Physical Exam Vital Signs: Vital Signs: Last Vital Signs Temp 99.1 F 02/23/21 13:00 Pulse 59 02/23/21 13:00 Resp 16 02/23/21 13:00 BP 103/44 L 02/23/21 13:00 Pulse Ox 100 02/23/21 13:00 BMI result Body Mass Index 27.3 Objective Data Labs CBC & Chem 7: 02/23/21 05:03 02/23/21 05:03 Labs: Laboratory Results - last 24 hr 02/22/21 02/22/21 02/23/21 20:44 22:55 05:03 WBC 11.1 H RBC 3.29 L Hgb 9.8 L Hct 30.9 L MCV 93.9 MCH 29.8 MCHC 31.7 RDW 12.9 Plt Count 253 MPV 11.7 Absolute Nucleated RBC 0.000 Nucleated RBC % (auto) 0.0 PTT (Heparin Protocol) 133.4 H* D 67.4 D Sodium Potassium Chloride Carbon Dioxide Anion Gap BUN Creatinine Estim Creat Clear Calc Estimated GFR Random Glucose Lactic Acid Calcium Phosphorus Magnesium Troponin I High Sens Albumin 02/23/21 02/23/21 02/23/21 05:03 05:03 05:03 WBC RBC Hgb Hct MCV MCH MCHC RDW Plt Count MPV Absolute Nucleated RBC Nucleated RBC % (auto) PTT (Heparin Protocol) Sodium 147 H Potassium 3.4 D Chloride 116 H Carbon Dioxide 24 Anion Gap 10 L BUN 33 H Creatinine 1.23 Estim Creat Clear Calc 34.4 Estimated GFR 42 Random Glucose 109 Lactic Acid 0.9 Calcium 8.9 Phosphorus 2.4 L Magnesium 1.8 Troponin I High Sens 249.4 H* Albumin 3.5 D 02/23/21 02/23/21 05:03 11:24 WBC RBC Hgb Hct MCV MCH MCHC RDW Plt Count MPV Absolute Nucleated RBC Nucleated RBC % (auto) PTT (Heparin Protocol) 54.8 59.5 Sodium Potassium Chloride Carbon Dioxide Anion Gap BUN Creatinine Estim Creat Clear Calc Estimated GFR Random Glucose Lactic Acid Calcium Phosphorus Magnesium Troponin I High Sens Albumin Microbiology Microbiology Results: Microbiology 02/20/21 11:13 Blood - Venous Blood Culture - Preliminary No growth after 48 hours. 02/20/21 11:11 Blood - Venous Blood Culture - Preliminary No growth after 48 hours. 02/20/21 Unknown Urine Catheterized - Bedoya Catheter Urine Culture - Final Quality Stroke Does the patient have a stroke diagnosis?: No VTE Prior VTE?: No VTE Risk Level:: Medical - moderate - high VTE Device Contraindication: N/A - Device Ordered VTE Drug Contraindication: N/A - Med Ordered
--- NOTE | 2021-02-23 15:01 | PC.NURSE ---
MD to bed side, turn of heparin and dopamine gtt.
[2021-02-23] MEDS: cefTRIAXone sodium 1 GM in 0.9 % Sodium Chloride 50 ML IV (21:29)
[2021-02-24] VITALS: BP 138/65; PULSE 56; RESP 18; TEMP 36.3; O2SAT 100
[2021-02-24] MEDS: Dextrose 5 % 1,000 ML 60 ML IVCONT ×2 (00:45→18:05)
[2021-02-24 04:15] VITALS: BMI 26.7
[2021-02-24 07:07] LABS: Anion Gap 11 (12-20); Blood Urea Nitrogen 27 mg/dL (9-16); Calcium 8.6 mg/dL (8.4-10.2); Carbon Dioxide 25 mmol/L (22-29); Chloride 111 mmol/L (96-108); Creatinine Clr Calc Pharmacy 37.9; Estimated Glomerular Filt Rate 48; Glucose Random 147 mg/dL (60-115); Magnesium 1.8 mg/dL (1.6-2.6); Phosphorus 3.1 mg/dL (2.7-4.5); Potassium 3.7 mmol/L (3.3-5.1); Sodium 143 mmol/L (135-145)
[2021-02-24 08:00] VITALS: BP 153/64; PULSE 55; RESP 18; TEMP 36; O2SAT 100
[2021-02-24] MEDS: Lactulose 20 GM/30 ML SOLUTION 10 GM PO (08:57)
--- NOTE | 2021-02-24 09:49 | HO.PM.IMPN ---
Subjective Subjective Date of Service: 02/25/21 Physical Exam Vital Signs: Vital Signs: Last Vital Signs Temp 96.8 F 02/24/21 08:00 Pulse 55 02/24/21 08:00 Resp 18 02/24/21 08:00 BP 153/64 H 02/24/21 08:00 Pulse Ox 100 02/24/21 08:00 BMI result Body Mass Index 26.7 Objective Data Active Medications Ceftriaxone Sodium 1 gm/ (Sodium Chloride) 50 mls @ 100 mls/hr IV Q24H CONNIE Stop: 02/25/21 20:29 Last Infusion: 02/23/21 23:08 Dose: 0 mls/hr Documented by: TEODORO Dextrose (D5w) 1,000 mls @ 50 mls/hr IVCONT .Q20H CONNIE Last Admin: 02/24/21 00:45 Dose: 60 mls/hr Documented by: TEODORO Lactulose (Lactulose 20 Gm/30 Ml Solution) 10 gm PO DAILY [facility] Last Admin: 02/24/21 08:57 Dose: 10 gm Documented by: ARGELIA Pharmacy Consult (Consult Rx Perform Med Rec) 1 each MISCELLANE ONCE PRN PRN Reason: Consult order Labs CBC & Chem 7: 02/23/21 05:03 02/25/21 09:08 Labs: Laboratory Results - last 24 hr 02/23/21 02/24/21 02/24/21 11:24 06:06 06:06 PTT (Heparin Protocol) 59.5 30.0 L D Anion Gap 11 L Estim Creat Clear Calc 37.9 Estimated GFR 48 Random Glucose 147 H Calcium 8.6 Phosphorus 3.1 Magnesium 1.8 Assessment and Plan (1) Hypernatremia: Status: Acute (2) JAMIN (acute kidney injury): Status: Acute (3) Acute hypernatremia: Status: Acute (4) Acute UTI: Status: Acute (5) Acute metabolic encephalopathy: Status: Acute Assessment and Plan: 75 yo female with reported history of schizoaffective/bipolar disorder, dementia with behavioral disturbance, COPD, HTN, HLD, anemia, CKD, (baseline SCr 1.92), 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 The patient had COVID-19 infection in June of 2019.? She has had the 2 dose vaccine, plus a booster.? She had her flu shot last month. She was asdmitted through ICU with presumed urosepsis, septic shock, hypovolemia, and severe hypernatremia (162) 1. Baseline schizoaffective disorder, dementia, parkinsonism.? At baseline she is reportedly minimally communicative.? So it would seem that she is back to her baseline now.? 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 ?Which means that she is at the natural end of life. ?(And a feeding tube is inappropriate for this kind of situation.) ?2. Urosepsis with GNR UTI.? Blood cultures are negative so far.? Continuing ceftriaxone. ?3. Septic shock--resolved.? Continuing IV D5W. ?4. Bradycardia.? Could be associated with inferior ischemia.? She?s not hypothyroid.? HR is 55 now ?5. Elevated troponin.? Looks like she had a NSTEMI.? Given her overall situation, heparin, ASA, and statin now stopped in ICU ?6. Hypovolemia.? Now Euvolemic. ? Her creat today is significantly below her baseline.? Continue maintenance D5W.? But it?s clear that the IV fluids are the only thing keeping her from recurrent dehydration and severe hyponatremia. ?7. Acute on chronic kidney injury.? Secondary to sepsis and hypovolemia, resolved ?8. Severe hypernatremia.? Secondary to severe dehydration. Sodium level is within normal. She is prone to recurence if doesn't drink enough water ?9. Severe obstipation.? Dehydration further contributes to the problem.? She needs a daily laxative.? ?10. At least moderate protein calorie malnutrition.? The fact that she became so dehydrated and hypernatremic is a sign that her brain function is reaching end-stage and she can?t take in enough calories and enough hydration.? (And as noted above, a feeding tube is not the answer, unlesss family really want to go forward with it vs hospice. Quality Stroke Does the patient have a stroke diagnosis?: No VTE Prior VTE?: No VTE Risk Level:: Medical - moderate - high VTE Device Contraindication: N/A - Device Ordered VTE Drug Contraindication: N/A - Med Ordered
--- NOTE | 2021-02-24 10:06 | PM.PNNEP ---
Subjective Subjective Date of Service: 02/24/21 Interval history: seen and examined lethargic Physical Exam Vital Signs: Vital Signs: Last Vital Signs Temp 96.8 F 02/24/21 08:00 Pulse 55 02/24/21 08:00 Resp 18 02/24/21 08:00 BP 153/64 H 02/24/21 08:00 Pulse Ox 100 02/24/21 08:00 BMI result Body Mass Index 26.7 Const: General: ill appearing HENMT: Head: Yes normocephalic and Yes atraumatic Neck: Neck: Yes supple Resp: Auscultation: diminished lung sounds Cardio: Heart sounds: S1 normal heart sound present and S2 normal heart sound present GI: Palpation (GI): Soft to palpation and nontender Extrem: General: Yes edema Objective Data Labs CBC & Chem 7: 02/23/21 05:03 02/24/21 06:06 Labs: Laboratory Results - last 24 hr 02/23/21 02/24/21 02/24/21 11:24 06:06 06:06 PTT (Heparin Protocol) 59.5 30.0 L D Sodium 143 Potassium 3.7 Chloride 111 H Carbon Dioxide 25 Anion Gap 11 L BUN 27 H Creatinine 1.11 Estim Creat Clear Calc 37.9 Estimated GFR 48 Random Glucose 147 H Calcium 8.6 Phosphorus 3.1 Magnesium 1.8 Microbiology Microbiology Results: Microbiology 02/20/21 11:13 Blood - Venous Blood Culture - Preliminary No growth after 48 hours. 02/20/21 11:11 Blood - Venous Blood Culture - Preliminary No growth after 48 hours. 02/20/21 Unknown Urine Catheterized - Bedoya Catheter Urine Culture - Final Procedures Date of Service Date of Service: 02/24/21 Assessment & Plan Assessment and plan (1) JAMIN (acute kidney injury): Status: Acute (2) Hypernatremia: Status: Acute Assessment and Plan: kidney function close to baseline free water deficit corrected JAMIN due to compromised kidney perfusion and tubular stress elevated serum sodium due to free water deficit baseline Scr ~ 1 mg/dl REC hypotonic fluid follow kidney function and electrolytes Time Spent With Patient Time: Total time spent is greater than 50% in coordination of care (as documented) at patient's floor/unit and/or counseling patient: Progress Note: Quality Stroke Does the patient have a stroke diagnosis?: No
[2021-02-24] MEDS: Heparin Sodium,Porcine 5,000 UNIT/ML VIAL 5000 UNIT SUBCUT (11:18)
[2021-02-24 12:00] VITALS: BP 134/73; PULSE 57; RESP 18; TEMP 36; O2SAT 98
--- NOTE | 2021-02-24 14:04 | W.MHC.ACPN ---
Advanced Care Planning Note Advanced Care Planning Note Discussed with: surrogate (The patient's surrogate is Zahira Reyes, who is the patient's first cousin and health care proxy.) () Time spent (in minutes): 20 Narrative: The patient's health care proxy is being activated because the patient is no longer competent and interactive enough to make her own decisions. We tried to contact Mrs. Reyes today to complete a new MOLST form, but she was out of the house. Will try again tomorrow morning. Problems Discussed (1) JAMIN (acute kidney injury): (2) Hypernatremia:
--- NOTE | 2021-02-24 14:50 | MHC.CM.PN ---
[facility] UPDATED. PLAN IS FOR PATIENT TO RETURN. HCP IS NOW INVOKED
[2021-02-24 16:00] VITALS: BP 135/62; PULSE 57; RESP 19; TEMP 36.2; O2SAT 100
[2021-02-24 20:00] VITALS: BP 144/60; PULSE 64; RESP 18; TEMP 36.6; O2SAT 99
[2021-02-24] MEDS: cefTRIAXone sodium 1 GM in 0.9 % Sodium Chloride 50 ML IV (20:38)
[2021-02-25] VITALS: BP 118/59; PULSE 52; RESP 18; TEMP 36.1; O2SAT 99
[2021-02-25] MEDS: Heparin Sodium,Porcine 5,000 UNIT/ML VIAL 5000 UNIT SUBCUT ×2 (00:11→10:42)
[2021-02-25 03:01] VITALS: BP 119/59; PULSE 54; RESP 19; TEMP 36; O2SAT 100
[2021-02-25 06:00] VITALS: BMI 26.0
[2021-02-25 08:00] VITALS: BP 133/71; PULSE 53; RESP 15; TEMP 36.4; O2SAT 100
[2021-02-25] MEDS: Lactulose 20 GM/30 ML SOLUTION 10 GM PO (09:27)
[2021-02-25 09:37] LABS: Anion Gap 10 (12-20); Blood Urea Nitrogen 19 mg/dL (9-16); Calcium 8.5 mg/dL (8.4-10.2); Carbon Dioxide 24 mmol/L (22-29); Chloride 108 mmol/L (96-108); Creatinine Clr Calc Pharmacy 46.7; Estimated Glomerular Filt Rate > 60; Glucose Random 126 mg/dL (60-115); Potassium 3.5 mmol/L (3.3-5.1); Sodium 138 mmol/L (135-145)
--- NOTE | 2021-02-25 10:27 | P.ACPN_ITS ---
Advanced Care Planning Note Advanced Care Planning Note Discussed with: surrogate Time spent (in minutes): 20 Narrative: I telephoned Siri Reyes this morning (the HCP) and spoke with her and her grandson Johnathon. We conference called with Houston Sheppard of case krzysztoftiffanie calvillo. We completed the MOLST form. I signed it, and Houston Sheppard witnessed Siri Brysonnchard giving her agreement and consent to each of the individual sections of the MOLST form. The form will now be put in the patient's chart. Problems Discussed (1) JAMIN (acute kidney injury): (2) Hypernatremia:
--- NOTE | 2021-02-25 10:34 | PM.PNNEP ---
Subjective Subjective Date of Service: 02/25/21 Interval history: seen and examined lethargic Physical Exam Vital Signs: Vital Signs: Last Vital Signs Temp 97.6 F 02/25/21 08:00 Pulse 53 02/25/21 08:00 Resp 15 02/25/21 08:00 BP 133/71 02/25/21 08:00 Pulse Ox 100 02/25/21 08:00 BMI result Body Mass Index 26.0 Const: General: ill appearing HENMT: Head: Yes normocephalic and Yes atraumatic Neck: Neck: Yes supple Resp: Auscultation: diminished lung sounds Cardio: Heart sounds: S1 normal heart sound present and S2 normal heart sound present GI: Palpation (GI): Soft to palpation and nontender Extrem: General: Yes edema Objective Data Labs CBC & Chem 7: 02/23/21 05:03 02/25/21 09:08 Labs: Laboratory Results - last 24 hr 02/25/21 09:08 Sodium 138 Potassium 3.5 Chloride 108 Carbon Dioxide 24 Anion Gap 10 L BUN 19 H Creatinine 0.89 Estim Creat Clear Calc 46.7 Estimated GFR > 60 Random Glucose 126 H Calcium 8.5 Microbiology Microbiology Results: Microbiology 02/20/21 11:13 Blood - Venous Blood Culture - Preliminary No growth after 48 hours. 02/20/21 11:11 Blood - Venous Blood Culture - Preliminary No growth after 48 hours. 02/20/21 Unknown Urine Catheterized - Bedoya Catheter Urine Culture - Final Procedures Date of Service Date of Service: 02/25/21 Assessment & Plan Assessment and plan (1) JAMIN (acute kidney injury): Status: Acute (2) Hypernatremia: Status: Acute Assessment and Plan: kidney function close to baseline free water deficit corrected JAMIN due to compromised kidney perfusion and tubular stress elevated serum sodium due to free water deficit baseline Scr ~ 1 mg/dl REC hypotonic fluid follow kidney function and electrolytes will sign off call for ? Time Spent With Patient Time: Total time spent is greater than 50% in coordination of care (as documented) at patient's floor/unit and/or counseling patient: Progress Note: Quality Stroke Does the patient have a stroke diagnosis?: No
[2021-02-25] MEDS: Dextrose 5 % 1,000 ML 60 ML IVCONT (10:39)
--- NOTE | 2021-02-25 11:47 | MHC.CM.PN ---
today dr. singer on conf call c HCP - viviana braden cage myself as a witness completed a MOLST . this MOLST is now in front of pt's physical chart. hospitalist and cm on the 3rd floor are aware of this . cm to cont. to follow.
[2021-02-25 12:00] VITALS: BP 126/70; PULSE 62; RESP 17; TEMP 36.7; O2SAT 100
--- NOTE | 2021-02-25 12:23 | P.DS_ITS ---
DS: Providers Provider Date of Service: 02/25/21 Date of admission: 02/20/21 14:26 Primary care physician: Radha James MD Consults: 02/21/21 10:12 Consult to Nephrology Routine Consulting Provider: Shon Denise Reason for consultation: hypernatremia, hypovolemia Has provider been notified: Yes DS: Diagnosis Discharge Diagnosis (1) Hypernatremia: Status: Resolved (2) JAMIN (acute kidney injury): Status: Resolved (3) Acute hypernatremia: Status: Resolved (4) Acute UTI: Status: Acute (5) Acute metabolic encephalopathy: Status: Resolved DS: Summary Hospital Course Hospital Course: HOsptial course The patient lives in [facility].? The transfer note from [facility] reports that the patient is nonverbal at baseline, but will make sounds and noises.? At baseline the patient is contractured but will move extremities on her own.? She is bedbound. According to the transfer note from [facility], the patient's healthcare proxy is Siri Reyes ([phone]).? The transfer documents include a MOLST form dated April 02, 2018, and signed by the patient.? That MOLST form indicates to attempt resuscitation, and intubate and ventilate.? Other issues on page 2 of the MOLST form were marked undecided. HISTORY OF PRESENT ILLNESS:? The pt was sent to the ED Feb 20 bec of abnormal labs.? Labs were done Feb 19 at the alf which revealed a WBC 17, sodium of 159 (baseline 137), BUN/creatinine of 113/3.07 (baseline 45/1.93).? Hb was 14; baseline hemoglobin is 10.9.? ?Urinalysis showed 646 wbc's, large leukocyte esterase, and heavy bacteria.? Urine culture was sent.? All those labs were done at [facility].? I called over to the [facility] micro lab and was told that her urine culture was growing >100,000 gram-negative rods.? The pat ient was also reported to be more lethargic than usual.? We were told that the labs just came back, resulting in her transfer to the [place] ED.? The patient did not get any antibiotics at the home. In the ED, the patient was lethargic, breathing easy, aroused to voice and sternal rub but did not verbalize or localize, did not follow commands.? HR was 69, BP 70s-80s systolic, Sat 89% on room air and 100% on 2 L NC.? Rectal temperature was 99.4 degrees.? General physical exam was otherwise remarkable for contracted lower extremities. Labs in the ED were notable for a white count of 17, hemoglobin of 11.6, sodium of 162, BUN/creatinine of 125/2.9, chloride 126, potassium 3.7, bicarb 22, glucose 134, normal LFTs, albumin 2.9, normal troponin, and lactic acid of 3.5.? COVID negative.? Abd CT showed bilateral renal cysts, with numerous punctate cortical calcifications in both kidneys.? There were no renal stones or hydronephrosis.? The rectum was markedly dilated with stool; the rectosigmoid was full of stool, all the way down to the anus. The patient was given a 30 cc/kg sepsis bolus of NS.? She was given cefepime.? A fter labs came back, she was started on D5W.? Blood pressure improved to 101/40, but then dropped again into the 80s.? Ultrasound examination of the neck was unable to find a jugular vein, and therefore no central line was placed.? The patient was started on peripheral low-dose Levophed. The patient was admitted to ICU.?bedside echocardiogram showed: ?1.? Probably normal LV wall thickness. ?2. LV cavity normal size.? Overall wall motion looked slightly hypokinetic.? Estimated EF about 50%.? No gross RWMAs. ?3. RV size probably normal.? Unable to assess function. ?4. Unable to evaluate atria. ?5. Unable to adequately visualize aortic valve, but it looked calcified. ?6. Mitral valve normal morphology, with no MR by color flow. ?7. Unable to visualize tricuspid valve.? Continuous-wave Doppler measured 1.8 m/sec. ?8. Unable to visualize IVC. The patient was continued on D5W.? She was manually disimpacted for a large amount of soft brown stool, and then given an enema.? Overnight her HR dropped into the 30s.? She did not respond to atropine.? She was started on dopamine.? We checked a troponin because of the bradycardia, and it came back at 821 -- compared to 23 on admission.? Her EKG showed an old IWMI but no acute ischemia.? We started the patient on a heparin infusion, ASA and statin. I had the heating and cooling technician echo her IVC on Feb 21.? Even after major volume resuscitation, the IVC still measured only about 0.95 cm, and had at least 50% insp collapse. We continued the D5W infusion.? We?ve been tapering the dopamine.? The patient?s sodium level is down, and her renal indices are much improved.? Her mental status has also improved.? Yesterday, she was appropriately responsive to questions with a few words that were slurred, but intelligible.? She passed a bedside swallow evaluation.? This morning, she?s a little less verbal, but still able to say ?I like that? when we asked her if she wanted ice cream.? And she was able to swallow the ice cream when fed to her in small amounts.? She coughed when we tried liquids. She?s breathing easy with Sat 100% on room air.? Rhythm on the monitor is regular sinus (P waves are very flat, but she?s SR on an EKG).? She?s off the dopamine.? HR is 67, BP 103/44.? She remains afebrile.? No jugular venous distention with the head of the bed at 30-40 degrees.? Chest is clear to auscultation, with a normal expiratory phase.? Heart tones are soft and regular.? I heard no murmur or gallops.? The abdomen is soft and benign.? She has the trace peripheral edema. LABORATORY DATA:? Below.? Notably, white count is down further, hemoglobin is down (after resuscitation).? Sodium is down to 147, BUN/creatinine are down further.? Troponin is down further.? Lactic acid finally normalized. MICROBIOLOGY:? Urine culture came back from [facility] showing >100,000 Klebsiella that was mostly sensitive.? A copy of the results are in the patient's chart.? Her antibiotics were changed to ceftriaxone.? Blood cultures are negative. IMPRESSION: ?1. Baseline schizoaffective disorder, dementia, parkinsonism.? At baseline she is reportedly minimally communicative.? So it would seem that she is back to her baseline now.? 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 ?Which means that she is at the natural end of life. ?(And a feeding tube is inappropriate for this kind of situation.) ?2. Urosepsis with GNR UTI.? Blood cultures are negative so far.? Continuing ceftriaxone. ?3. Septic shock.? Continuing IV D5W. ?4. Bradycardia.? Could be associated with inferior ischemia.? She?s not hypothyroid.? Dopamine is off now and we will not restart it. ?5. Elevated troponin.? Looks like she had a NSTEMI.? Given her overall situation, I?m discontinuing the heparin, ASA, and statin now. ?6. Hypovolemia.? I?m guessing that she?s probably pretty close to euvolemia now.? Her creat today is significantly below her baseline.? I?ve changed her fluids to maintenance D5W.? But it?s clear that the IV fluids are the only thing keeping her from recurrent dehydration and severe hyponatremia. ?7. Acute on chronic kidney injury.? Secondary to sepsis and hypovolemia ?8. Severe hypernatremia.? Secondary to severe dehydration. ?9. Severe obstipation.? Dehydration further contributes to the problem.? She needs a daily laxative.? Wrote her for daily lactulose, altho I?m not sure she can get that down. ?10. At least moderate protein calorie malnutrition.? The fact that she became so dehydrated and hypernatremic is a sign that her brain function is reaching end-stage and she can?t take in enough calories and enough hydration.? (And as noted above, a feeding tube is not the answer.) On Feb 20, [Dr. Weston] spoke with Zahira Reyes and the grandson Johnathon about life support issues.? They both agreed that it made no sense to put her on a ventilator or do CPR.? I told them we would not put her on a respirator or do chest compressions if something happened, and they both readily agreed.? Nurse Braxton Kelly listened in on the conversation and was witness to their statements.? I wrote DNR/DNI orders, and discussed the situation with case management. The situation with the patient?s declining mental status and the fact that she?s at end of life has become clear over the last two days.? So [ spoke] with Glendy Reyes and her grandson again by telephone and discussed the situation with them at some length.? They understand that her brain function is deteriorating and she is unable to take in adequate nutrition and hydration.? They understand that that means that she is at the end of life.? I suggested to them that Yue should go back to the alf, and at the alf they can give her as much nutrition and hydration as they possibly can, but when her condition deteriorates, as it surely will, she should be allowed to at the alf and should not be sent back to the hospital. [Dr. Szymanski ]explained to them what a MOLST form is and suggested that we fill one out.? They asked me to do that with them tomorrow.? The patient is ?stable? for transfer to med-surg.? I will go up to the floor and fill out the MOLST form with the next of kin tomorrow, with the floor nurse witnessing the telephone conversation--The MOLST form was completed on February [address] Weston over the phone and witnessed by Houston Barrios. At the moment hypernatremia has resolved, sodium level is 138, renal function is within normal with Creatine of 0.89, Vital sings are stable, she's breathing easy BP 120/70, P62, RR17, Temp 98.1 and 100 on room air. Cultures have been negaive, she will finish last dose of antibiotics before discharge. Patient s hould be assisted in eating and in particular drinking plenty of water to keep sodium level within normal. Family understand she may not be able to do this and this has been explained to them by Dr. 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 4d Temp 98.1 F 02/25/21 12:00 Alum Plant Operator New 4d Pulse 62 02/25/21 12:00 Alum Plant Operator New 4d Resp 17 02/25/21 12:00 BP 126/70 02/25/21 12:00 Pulse Ox 100 02/25/21 12:00 BMI result Body Mass Index 26.0 DS: Data Data Completed and Pending Labs on day of discharge: Laboratory Results - last 24 hr 02/25/21 09:08 Sodium 138 Potassium 3.5 Chloride 108 Carbon Dioxide 24 Anion Gap 10 L BUN 19 H Creatinine 0.89 Estim Creat Clear Calc 46.7 Estimated GFR > 60 Random Glucose 126 H Calcium 8.5 Preliminary micro results at discharge 02/20/21 11:13 Blood Culture - Preliminary Blood - Venous No growth after 48 hours. 02/20/21 11:11 Blood Culture - Preliminary Blood - Venous No growth after 48 hours. Discharge Plan Discharge Anticipated Discharge Date/Time: 02/25/21 12:15 Patient Disposition: Xfer SNF Discharge Diagnosis: Septic shock, UTI, hypernatremia Referrals: [facility] [Other] - 1 Day (DISCHARGE TO [facility] VIA [facility]SP[facility] ) Radha James MD [Primary Care Provider] - 1 Week Discharge Medications: New cefuroxime axetil 500 mg tablet 500 mg PO BID 7 Days Qty: 14 0RF Continued polyethylene glycol 3350 17 gram Powder In Packet 17 g PO DAILY PRN (Reason: Constipation) 0RF haloperidol decanoate 100 mg/mL solution 25 mg IM Q14D 0RF famotidine 20 mg tablet 1 tab PO DAILY 0RF lorazepam 0.5 mg tablet 1 tab PO DAILY@0600 0RF lorazepam 1 mg Tablet 1 mg PO DAILY@1800 0RF mirtazapine 7.5 mg tablet 1 tab PO DAILY@1800 0RF Discharge Orders: Discharge Order (Routine); Ordered 02/25/21 Ordered By: Yu Nowak Diet: advance to usual diet Activity on Discharge: As tolerated Stand Alone Forms: Patient Portal Discharge page Care Plan Goals: Preven rehospitalization and maintain sodium level Health Concerns: progressing dementia, Plan of Treatment: Transfer back to SNF, follow MOLST form instruction, assist patient in eating and drinking enough water daily, about 2000 cc a day. Assessment: As above Discharge Date/Time: 02/25/21 17:00
--- NOTE | 2021-02-25 12:27 | CONS_ITS ---
DATE OF SERVICE: 02/21/2021 REASON FOR CONSULTATION: I was asked to see the patient to assist in evaluation and management of patient's hypernatremia as reflected by a serum sodium that was as high as 162 yesterday along with acute kidney injury with a creatinine that was 2.9 yesterday on admission down to 2.0 this morning. HISTORY OF PRESENT ILLNESS: In summary, the patient is a 75-year-old female with history of schizoaffective bipolar disorder, dementia, behavioral disturbances, COPD, hypertension, hyperlipidemia, and a question of chronic kidney disease along with Parkinson's due to her antipsychotic medications, presents to the hospital in septic shock due to urosepsis and noted to be hypovolemic and hypernatremic and acute kidney injury. The patient is minimally responsive and information is obtained from electronic medical record. She presented again in septic shock requiring pressors and metabolic abnormalities as noted. Her hospital course has included IV fluids and actually her serum sodium has come down to 154 this morning and renal function has improved. She has continued fairly significant urine output. Her pressor requirements are coming down. PAST MEDICAL HISTORY: As noted. Unable to obtain family history or review of systems. MEDICATIONS: On admission are noted in the admitting notes. Current medications are noted in the MAR. PHYSICAL EXAM: VITAL SIGNS: Presently blood pressure is 160/80 and her was discontinued. She is still on dopamine as she has some bradycardia. Urine output is noted to be 2895, noted on the I's and O's with 4.1 L in. Mucous membranes are dry. Skin is tented. LUNGS: Breath sounds bilaterally, diminished at the bases. CARDIAC: Regular rate. ABDOMEN: Soft. EXTREMITIES: Shows no edema. LABS: This morning show hemoglobin 12.9, hematocrit 41.9, white blood cell count 23.7, and platelet count 394. Sodium 154, potassium 4, chloride 122, bicarb 20, BUN 82, creatinine 2.0, lactate 3.0, calcium 8.7, phosphorus 4.1, magnesium 2.5, and albumin 3.3. Urinalysis shows specific gravity of 1.015, 2+ blood, and 3+ white cells noted. IMPRESSION: 75-year-old, admitted with septic shock, presumed urinary source with acute kidney injury and hypernatremia. 1. Acute kidney injury. This is consistent with septic shock and renal hypoperfusion with acute tubular necrosis. Renal function is improving with IV rehydration. It is unclear what her baseline renal function is. On the admitting notes, the baseline creatinine is 1.9. However, on the computer, there is a creatinine of 1.0 back in August 2018. 2. Chronic kidney disease 3. Again, it is unclear what her baseline renal function is. She did have a CAT scan without IV contrast on admission. There was no hydro. 3. Hypernatremia. She has significant free water deficit. It is already coming down with replacement with hypotonic fluids. There is less concern about how rapid one corrects hyponatremia, so continue with the IV hypotonic fluids. We would recommend using half-normal saline as this will both volume expand as well as full fledged free water. It is certainly possible that she may have underlying inabilities to concentrated urine and perhaps prior lithium use. We will monitor urine output and urine awesome and see if this is an issue. 4. Septic shock from urinary tract source. This is responding to antibiotics and pressors. SUGGESTIONS: At this time include continue with IV hypertonic fluids. 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 Monitor urine output and renal function. Avoid nephrotoxins. We will follow the patient with the ICU team. MD JUSTIN Del Castillo/YESSENIA / [phone]
--- NOTE | 2021-02-25 13:41 | MHC.CLN ---
F/U MOLST COMPLETED 02/25. PATIENT IS DNR/DNI, NO TUBE FEEDING. TAKING VERY LITTLE BY MOUTH. CONTINUE TO ASSIST WITH INTAKE IF PATIENT ABLE TO EAT.
[2021-02-25 14:42] LABS: IDNOW Serial# 9DD0AD1C
[2021-02-25 14:43] LABS: COVID-19 Test Negative (Negative)
--- NOTE | 2021-02-25 14:47 | MHC.CM.PN ---
nurse patient case coordinator note discharged today back to [facility] [address] she [address] , her hcp has been envoked no longer able to make decision and not interactive , advance plannung meeting today with hcp and mols form had been completed , t/c to patient health care proxy [place] [employer] immm updayted and mailed to her home she is aware of the discharge and transport 3-3;30 pm todY TRANSPORT VIA [facility]
[2021-02-25 16:49] VITALS: BP 129/61; PULSE 60; RESP 18; O2SAT 97
== END 2021-02-25 17:00 | disposition skilled nursing facility (03) | DRG 871 ==
LOC: HO.ED 12:16 → HO.EDOVER 14:34 → HO.ICU 14:49 → HO.S3 02-23 17:14
PROVIDERS: Physician Assistant; Admitting Provider Anesthesiology; Emergency Provider Emergency Medicine Emergency Medical Services; PCP Internal Medicine; Visit Provider Internal Medicine
DX: A41.9 Sepsis, unspecified organism (principal); R65.21 Severe sepsis with septic shock; G93.41 Metabolic encephalopathy; I21.4 Non-ST elevation (NSTEMI) myocardial infarction; N17.0 Acute kidney failure with tubular necrosis; G21.11 Neuroleptic induced parkinsonism; E87.0 Hyperosmolality and hypernatremia; F03.91 Unspecified dementia, unspecified severity, with behavioral disturbance; N39.0 Urinary tract infection, site not specified; E44.0 Moderate protein-calorie malnutrition; L89.152 Pressure ulcer of sacral region, stage 2; L89.321 Pressure ulcer of left buttock, stage 1; R00.1 Bradycardia, unspecified; L89.311 Pressure ulcer of right buttock, stage 1; K59.09 Other constipation; F25.0 Schizoaffective disorder, bipolar type; B96.1 Klebsiella pneumoniae [K. pneumoniae] as the cause of diseases classified elsewhere; E86.1 Hypovolemia; N18.30 Chronic kidney disease, stage 3 unspecified; T43.505A Adverse effect of unspecified antipsychotics and neuroleptics, initial encounter; Z68.26 Body mass index [BMI] 26.0-26.9, adult; Y92.9 Unspecified place or not applicable; Z20.822 Contact with and (suspected) exposure to COVID-19; Z79.899 Other long term (current) drug therapy; Z66 Do not resuscitate
CPT/HCPCS: 36415; 71045; 74176; 80048; 80076; 81001; 82040; 82803; 82947; 83605; 83735; 84100; 84145; 84443; 84484; 85025; 85027; 85610; 85730; 87040; 87086; 87635; 93005; 96361; 96365; 96366; 96375; 99284; 99291; 99497; J0461; J0692; J0696; J1265; J2370; J2543; P9047